=== PATIENT | female | born 1975 | race Caucasian/White ===

== ENCOUNTER 2017-04-30 18:15 | Observation (INO) ==
--- NOTE | 2017-04-30 18:47 | Emergency Department Note ---
ED Disposition Clinical Impression: Suicidal ideation, Suicidal behavior with attempted self-injury, Hypokalemia Overdose Qualifiers: Encounter type: initial encounter Injury intent: intentional self-harm Qualified Code(s): T50.902A - Poisoning by unspecified drugs, medicaments and biological substances, intentional self-harm, initial encounter Major depression Qualifiers: Major depression recurrence: single episode Active/Remission status: currently active Major depression episode severity: severe Psychotic features: without psychotic features Qualified Code(s): F32.2 - Major depressive disorder, single episode, severe without psychotic features Disposition: Admitted As Inpatient Condition on Discharge: Good Time of Disposition: 19:07 - Critical Care Critical Care Time: No Attestation: On , the high probability of a clinically significant, sudden or life threatening deterioration of the following system(s) required my full and direct attention, intervention and personal management. The time I documented below is in addition to time spent performing reported procedures but includes the following listed in this critical care notation. Total Critical Care Time: 45 Vital system(s) involved:: Circulatory Failure My critical care processes included: Assessment & monitoring of V/S, Initial and Re-exams, Data Review/Interpretation, Coordinating Care, Medication Orders and management, Documentation Medical Decision Making - Medical Records Medical records reviewed: Yes: I reviewed the patient's medical records. - Robby Inquiry Pt receiving controlled substance: No Vital Signs: 04/30/17 18:16 04/30/17 19:22 Temperature 98.0 F 98.9 F Temperature Source Axillary Oral Pulse Rate [Right Brachial] 127 H 128 H Respiratory Rate 16 14 Blood Pressure [Right Arm] 142/93 172/98 Blood Pressure Mean [Right Arm] 109 122 Blood Pressure Source [Right Arm] Automatic Cuff Automatic Cuff Blood Pressure Position [Right Arm] Supine Supine 02 Sat by Pulse Oximetry 100 99 Oxygen Delivery Method Room Air - Lab Data Lab results reviewed: Yes: I reviewed the patient's lab results. Lab Results 04/30/17 18:25: Urine Color Yellow, Urine Appearance Clear, Urine pH 6.0, Ur Specific Folcroft 1.020, Urine Protein Negative, Urine Glucose (UA) Negative, Urine Ketones 1+, Urine Blood Trace-i, Urine Nitrate Negative, Urine Bilirubin Negative, Urine Urobilinogen 0.2, Ur Leukocyte Esterase Negative, Urine WBC Occasional, Ur Squamous Epith Cells Occasional 04/30/17 18:25: WBC 9.6, RBC 5.03, Hgb 13.5, Hct 42.7, MCV 84.8, MCH 26.8 L, MCHC 31.5 L, RDW 13.4, Plt Count 456 H, MPV 8.0, Neut % (Auto) 54.3, Lymph % ( Auto) 40.4, Prentiss % (Auto) 3.5, Eos % (Auto) 1.3, Baso % (Auto) 0.4, Neut # (Auto ) 5.2, Lymph # (Auto) 3.9, Prentiss # (Auto) 0.3, Eos # (Auto) 0.1, Baso # (Auto) 0.0 04/30/17 18:25: Urine HCG, Qual Negative 04/30/17 18:25: Sodium 139, Potassium 3.4 L, Chloride 105, Carbon Dioxide 23, Anion Gap 14.4, BUN 10, Creatinine 0.85, Estimated Creat Clear 127, Estimated GFR 74, Est GFR ( Amer) 90, Glucose 164 H, Calcium 8.6, Total Bilirubin 0.2, AST 15, ALT 25, Alkaline Phosphatase 75, Total Protein 7.3, Albumin 3.3 L, Globulin 4.0 H, Albumin/Globulin Ratio 0.8 L, Salicylates 1.4 L, Acetaminophen 0 L, Plasma/Serum Alcohol 0 04/30/17 18:25: Urine Opiates Screen Negative, Ur Barbituates Screen Negative, Ur Phencyclidine Scrn Negative, Ur Amphetamines Screen Negative, U Methamphetamines Scrn Negative, U Benzodiazepines Scrn Negative, Urine Cocaine Screen Negative, U Marijuana (THC) Screen Negative Result diagrams: 04/30/17 18:25 04/30/17 18:25 Orders (Tests/Meds): ED MEDICATIONS Discontinued Medications Generic Name Dose Route Start Last Admin Trade Name Freq PRN Reason Stop Dose Admin Sodium Chloride 1,000 mls @ 999 mls/hr 04/30/17 19:00 04/30/17 18:58 Sod Chlor 0.9% 1000ml Bag IV 04/30/17 20:00 999 mls/hr .Q1H1M ALBARO Administration Sodium Chloride 1,000 mls @ 125 mls/hr 04/30/17 19:35 05/01/17 10:00 Sod Chlor 0.9% 1000ml Bag IV 05/30/17 19:34 125 mls/hr .Q8H ALBARO Administration Ondansetron HCl 4 mg 04/30/17 18:46 04/30/17 18:58 Zofran 4mg/2ml Vial IV 04/30/17 18:47 4 mg ONCE ONE Administration Ondansetron HCl 4 mg 04/30/17 19:35 Zofran 4mg/2ml Vial IV 05/30/17 19:34 Q4H PRN Nausea - Physician Consults Physician Consulted: Dr. Calloway Time: 19:00 Reason -: Admission, Pt condition Comment/Response: Case discussed with Dr. Calloway, advised of patient's presentation and findings, agreeable with hospitalization. She is NOT medically clear at this time, she will need to be transferred to psychiatric facility, when medically cleared. - Reevaluation(s) Time: 19:00 Reevaluation #1: Patient reevaluated, she remains lethargic, arousable with sternal rubs and loud voice only. Advise of plan to hospitalize her as well as transfer to psychiatric facility when medically clear, more than likely in 24 hours. Overdose HPI - General Chief Complaint: Overdose Stated Complaint: overdose Time Seen by Provider: 04/30/17 18:26 Mode of Arrival: EMS Source of Information: EMS Limitations: No Limitations Description of Symptoms (Recalled from ER Triage Doc. by RN): Per report pt has been "down in the dumps" for approx 2 weeks. States he spoke with pt about an hour ago she did not seem to her normal. States when she hung up the phone pt states to him to tell her daughter she loves her, states after pt hung up she would not answer again, states he found pt in floor at home , not responding but breathing. Upon arrival to ED pt will alert to verbal commands, keeps saying "I wanna go home". - History of Present Illness MD complaint: intentional overdose Onset (ago): hour(s) (/2) Timing confirmed by: spouse, family member Intent: suicide attempt How Overdose Was Discovered: called family/friend Context: Intentional Overdose: relationship problems Associated symptoms: depression Treatments Prior to Arrival: none - Related Data Home Medications Medication Instructions Recorded Confirmed Metoprolol Succinate 12.5 mg PO DAILY 04/30/17 04/30/17 Allergies Allergy/AdvReac Type Severity Reaction Status Date / Time aspirin [ASPIRIN] Allergy Unknown Verified 04/30/17 18:51 ibuprofen [IBUPROFEN] Allergy Unknown Verified 04/30/17 18:51 naproxen [From ALEVE] Allergy Unknown Verified 04/30/17 18:51 [facility] History I have reviewed the patient's past medical history: Yes ROS Obtained: Yes All systems reviewed & no additional complaints, Yes Systems reviewed as appropriate & no additional complaints - Neurologic Neurologic: Reports system reviewed and no additional complaints, except as docu ( ), Reports as per HPI, Reports behavioral changes (depression, suicidal, suicidal attempt) Physical Exam - General General appearance: alert, lethargic, in distress (severe, ) - Head Head exam: atraumatic, normocephalic, normal inspection - Eye Eye exam: Present: normal appearance, PERRL, EOMI, other (normal fundi) - Neck Neck exam: Present: normal inspection, full ROM, trachea midline. Absent: meningismus, lymphadenopathy - Chest Chest inspection: Present: normal inspection, symmetric chest wall rise. Absent : tenderness - Respiratory Respiratory exam: Present: normal lung sounds bilaterally. Absent: respiratory distress - Cardiovascular Cardiovascular exam: Present: regular rate, normal rhythm. Absent: JVD - Abdominal Exam Abdominal exam: Present: soft, normal bowel sounds. Absent: distention, tenderness, guarding - Extremities Exam Extremities exam: Present: normal inspection, full ROM, normal capillary refill. Absent: calf tenderness - Back Exam Back exam: Present: normal inspection. Absent: tenderness - Neurological Exam Neurological exam: Present: alert, oriented X3, CN II-XII intact, motor sensory deficit, other (lethargic) - Psychiatric Psychiatric exam: Present: normal affect, normal mood - Skin Skin exam: Present: warm, dry, intact, normal color - Lymphatic Lymphatic Findings: no adenopathy
[2017-04-30 18:48] LABS: Microscopic, Urine URINE MICROSCOPIC (MICROSCOPIC)
[2017-04-30 18:52] LABS: Basophils % 0.4 % (0.1-2.0); Eosinophils # 0.1 K/mm3 (0.0-0.4); Eosinophils % 1.3 % (0.1-12.0); Hematocrit 42.7 % (37.0-47.0); Hemoglobin 13.5 g/dL (12.2-16.2); Lymphocytes # 3.9 K/mm3 (0.7-4.5); Lymphocytes % 40.4 K/mm3 (10-50); Mean Corpuscular HGB Conc 31.5 g/dL (31.8-35.4); Mean Corpuscular Hemoglobin 26.8 pg (27.0-31.2); Mean Corpuscular Volume 84.8 fl (81-99); Monocytes # 0.3 K/mm3 (0.1-1.0); Monocytes % 3.5 % (1.7-9.3); Neutrophils # 5.2 K/mm3 (1.8-7.8); Neutrophils % 54.3 % (37.0-80.0); Platelet Count 456 K/mm3 (142-424); Red Blood Count 5.03 M/mm3 (4.20-5.40); Red Cell Distribution Width 13.4 % (11.5-17.5); White Blood Count 9.6 K/mm3 (4.8-10.8)
[2017-04-30 18:56] LABS: Appearance,Urine CLEAR (Clear); Bilirubin,Urine Negative (Negative); Blood, Urine TRACE-I (Negative); Color,Urine YELLOW (Yellow); Glucose,Urine (UA) Negative (Negative); Ketones,Urine 1+ (Negative); Leukocyte Esterase,Urine Negative (Negative); Protein,Urine Negative (Negative); Urobilinogen,Urine 0.2 EU/dl (0.2)
[2017-04-30 19:02] LABS: Amphetamine/Metha Screen,Urine Negative ng/mL (<1000); Barbiturates Screen,Urine Negative ng/mL (<200); Benzodiazepines Screen,Urine Negative ng/mL (200); Cannabinoid Screen,Urine Negative ng/mL (<50); Cocaine Screen,Urine Negative ng/g (<300); Methadone Screen,Urine Negative ng/mL (<300); Opiate Screen,Urine Negative ng/mL (<300); Phencyclidine Screen,Urine Negative ng/mL (<25)
[2017-04-30 19:04] LABS: Albumin Level 3.3 gm/dL (3.4-5.0); Albumin/Globulin Ratio 0.8 (1.1-1.8); Anion Gap 14.4 mEq/L (5-15); Bilirubin,Total 0.2 mg/dL (0.2-1.0); Calcium 8.6 mg/dL (8.5-10.1); Potassium 3.4 mmoL/L (3.5-5.1); Total Protein,Serum 7.3 gm/dL (6.4-8.2)
[2017-04-30 19:08] LABS: Squamous Epithelial Cell,Urine Occasional #/hpf (0-5); WBC,Urine Occasional #/hpf (0-3)
[2017-04-30 19:19] LABS: Salicylate 1.4 mg/dL (2.8-20.0)
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
--- NOTE | 2017-05-01 07:39 | Pharmacy Consult Notes ---
[facility] Pharmacy VTE Monitoring - Patient Demographics Admission date: 04/30/17 Report Date: 05/01/17 Time: 07:39 Allergies/Adverse Reactions: Patient Allergies aspirin [ASPIRIN] Allergy (Unknown, Verified 04/30/17 18:51) ibuprofen [IBUPROFEN] Allergy (Unknown, Verified 04/30/17 18:51) naproxen [From ALEVE] Allergy (Unknown, Verified 04/30/17 18:51) Height: 1.68 m Weight: 94.149 kg Patient Problems: Current Active Problems Overdose (Acute) Suicidal ideation (Acute) Suicidal behavior with attempted self-injury (Acute) Major depression (Acute) Bipolar 1 disorder, depressed (Acute) Tachycardia (Acute) Hypertension (Acute) Hypokalemia (Acute) - VTE Risk Labs: VTE Related Lab Results Hgb 13.5 g/dL (12.2-16.2) 04/30/17 18:25 Hct 42.7 % (37.0-47.0) 04/30/17 18:25 Plt Count 456 K/mm3 (142-424) H 04/30/17 18:25 BUN 10 mg/dL (7-18) 04/30/17 18:25 Creatinine 0.85 mg/dL (0.55-1.02) 04/30/17 18:25 Estimated Creat Clear 127 mL/min (0-300) 04/30/17 18:25 Clinical Trial Participant: No - Prophylaxis VTE Prophylaxis Ordered?: Yes Types of VTE Prophylaxis: TEDS Knee High
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
--- NOTE | 2017-05-01 14:33 | Progress Note ---
Internal Medicine - PN: Subj *Date: 05/01/17 *Time: 14:28 Exam Vital signs and Labs for Last 24 Hours: Temp Pulse Resp BP Pulse Ox 98.3 F 81 18 151/52 97 05/01/17 11:19 05/01/17 11:19 05/01/17 11:19 05/01/17 11:19 05/01/17 11:19 I & O for Last 24 hours: Intake & Output 04/29/17 04/30/17 05/01/17 05/02/17 11:59 11:59 11:59 11:59 Intake Total 1919 / 1918 840 / 840 Output Total 4050 / 4050 Balance -2131 / -213 840 / 840 Weight 227 lb 5 oz Assessment and Plan (1) Bipolar 1 disorder, depressed Current visit: Yes Status: Acute Category: Medical Code(s): F31.9 - Bipolar disorder, unspecified (2) Tachycardia Current visit: Yes Status: Acute Category: Medical Code(s): R00.0 - Tachycardia, unspecified (3) Hypertension Current visit: Yes Status: Acute Category: Medical Code(s): I10 - Essential (primary) hypertension (4) Hypokalemia Current visit: Yes Status: Acute Category: Medical Code(s): E87.6 - Hypokalemia (5) Major depression Current visit: Yes Status: Acute Qualifiers: Major depression recurrence: single episode Major depression episode severity: severe Psychotic features: without psychotic features Category: Medical Code(s): F32.9 - Major depressive disorder, single episode, unspecified (6) Overdose Current visit: Yes Status: Acute Qualifiers: Encounter type: initial encounter Injury intent: intentional self-harm Qualified Code(s): T50.902A - Poisoning by unspecified drugs, medicaments and biological substances, intentional self-harm, initial encounter Category: Medical Code(s): T50.901A - Poisoning by unspecified drugs, medicaments and biological substances, accidental (unintentional), initial encounter (7) Suicidal behavior with attempted self-injury Current visit: Yes Status: Acute Category: Medical Code(s): T14.91XA - Suicide attempt, initial encounter (8) Suicidal ideation Current visit: Yes Status: Acute Category: Medical Code(s): R45.851 - Suicidal ideations
[2017-05-01 15:15] VITALS: BP 122/87
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
== END 2017-05-01 15:56 | disposition home or self-care (01) ==
LOC: ER 18:15 → 2ND 18:15
PROVIDERS: ADMIT Family Medicine; ATTEND Family Medicine

== ENCOUNTER → 2017-08-27 07:36 | Outpatient (CLI) | payer BC, SELFPAY ==
[2017-08-27 10:03] LABS: Alanine Aminotransferase 22 U/L (12-78); Albumin Level 3.2 gm/dL (3.4-5.0); Albumin/Globulin Ratio 0.9 (1.1-1.8); Alkaline Phosphatase 77 U/L (46-116); Anion Gap 12.5 mEq/L (5-15); Aspartate Amino Transferase 10 U/L (15-37); Bilirubin,Total 0.3 mg/dL (0.2-1.0); Blood Urea Nitrogen 11 mg/dL (7-18); Calcium 8.5 mg/dL (8.5-10.1); Carbon Dioxide 28 mmol/L (21.0-32.0); Chloride 106 mmol/L (98-107); Chol/HDL Ratio 4.1 (1-3.5); Cholesterol 206 mg/dL (140-200); Creatinine,Serum 0.68 mg/dL (0.55-1.02); Estimated Glomerular Filt Rate 96 ml/min (>60); GFR (African American) 117 ML/MIN (>60); Globulin 3.4 gm/dl (1.3-3.2); Glucose 82 mg/dL (74-106); HDL Cholesterol 50 mg/dL (29-89); LDL Cholesterol 135 mg/dL (0-130); Potassium 4.5 mmoL/L (3.5-5.1); Sodium 142 mmol/L (136-145); Total Protein,Serum 6.6 gm/dL (6.4-8.2); Triglycerides 104 mg/dL (30-200); VLDL Cholesterol 21 mg/dL (0-40)
== END ==
PROVIDERS: Visit Provider Nurse Practitioner Family
DX: E78.5 Hyperlipidemia, unspecified (principal); I10 Essential (primary) hypertension
CPT/HCPCS: 36415; 80053; 80061

== ENCOUNTER → 2017-10-21 18:17 | Outpatient (REF) | payer BC, SELFPAY | LOC: LAB 18:17 | PROVIDERS: Visit Provider Emergency Medicine | DX: J02.9 Acute pharyngitis, unspecified (principal) ==

== ENCOUNTER → 2018-12-20 16:48 | Outpatient (CLI) | payer OTHER, SELFPAY ==
--- NOTE | 2018-12-20 17:05 | ECG_ITS ---
APPROVED REPORT Exam: Resting ECG HR:73 bpm ECG Measurements Heart Rate 73 AXES AL 140 P 40 QRSd 82 QRS 28 QT 370 T 54 QTc 407 <Conclusion> Normal sinus rhythm Late r wave progression Abnormal ECG Electronically signed by : Frederick Mena, 12/20/2018 17:21:40
[2018-12-20 17:30] LABS: Basophils # 0.1 K/mm3 (0-0.2); Basophils % 0.6 % (0.1-2.0); Eosinophils # 0.1 K/mm3 (0.0-0.4); Hematocrit 38.3 % (37.0-47.0); Hemoglobin 12.3 g/dL (12.2-16.2); Lymphocytes # 3.3 K/mm3 (0.7-4.5); Lymphocytes % 37.5 % (10-50); Mean Corpuscular HGB Conc 32.1 g/dL (31.8-35.4); Mean Corpuscular Hemoglobin 27.2 pg (27.0-31.2); Mean Corpuscular Volume 84.8 fl (81-99); Mean Platelet Volume 7.3 fl (7.4-10.4); Monocytes # 0.4 K/mm3 (0.1-1.0); Monocytes % 4.3 % (1.7-9.3); Neutrophils # 4.9 K/mm3 (1.8-7.8); Neutrophils % 56.6 % (37.0-80.0); Platelet Count 435 K/mm3 (142-424); Red Blood Count 4.52 M/mm3 (4.20-5.40); Red Cell Distribution Width 13.4 % (11.5-17.5); White Blood Count 8.7 K/mm3 (4.8-10.8)
[2018-12-20 17:34] LABS: D-Dimer < 100 ng/mL (0-400)
[2018-12-20 17:41] LABS: Alanine Aminotransferase 12 U/L (12-78); Albumin Level 3.1 gm/dL (3.4-5.0); Albumin/Globulin Ratio 0.8 (1.1-1.8); Alkaline Phosphatase 63 U/L (46-116); Anion Gap 7.6 mEq/L (5-15); Aspartate Amino Transferase 10 U/L (15-37); Bilirubin,Total 0.2 mg/dL (0.2-1.0); Blood Urea Nitrogen 15 mg/dL (7-18); CKMB Relative Index 0.9 U/L (0-4.0); Calcium 8.6 mg/dL (8.5-10.1); Carbon Dioxide 29 mmol/L (21.0-32.0); Chloride 105 mmol/L (98-107); Creatine Kinase 57 U/L (26-192); Creatine Kinase MB 0.5 ng/ml (0.0-3.6); Creatinine,Serum 0.88 mg/dL (0.55-1.02); Estimated Glomerular Filt Rate 71 ml/min (>60); Free T4 (Free Thyroxine) 0.95 ng/dl (0.76-1.46); GFR (African American) 86 ML/MIN (>60); Globulin 3.7 gm/dl (1.3-3.2); Glucose 94 mg/dL (74-106); Potassium 3.6 mmoL/L (3.5-5.1); Sodium 138 mmol/L (136-145); Thyroid Stimulating Hormone 2.94 uIU/ml (0.358-3.740); Total Protein,Serum 6.8 gm/dL (6.4-8.2); Troponin I < 0.02 ng/ml (0.00-0.06)
== END ==
PROVIDERS: PCP Physician Assistant; Visit Provider Physician Assistant
DX: R07.9 Chest pain, unspecified (principal); R00.0 Tachycardia, unspecified
CPT/HCPCS: 36415; 80053; 82550; 82553; 84439; 84443; 84484; 85025; 85378; 93005

== ENCOUNTER → 2020-02-04 11:07 | Outpatient (CLI) | payer OTHER, SELFPAY ==
[2020-02-04 12:44] LABS: Thyroid Stimulating Hormone 2.51 uIU/mL (0.465-4.68)
[2020-02-05 10:36] LABS: FSH 4.5 mIU/mL (.); LH 6.2 mIU/mL (.); Progesterone 14.1 ng/mL (.)
[2020-02-12 09:52] LABS: Anti Mullerian Hormone (AMH) 0.898 ng/mL (.)
== END ==
PROVIDERS: Visit Provider Obstetrics & Gynecology
DX: N97.0 Female infertility associated with anovulation (principal)
CPT/HCPCS: 36415; 82397; 82670; 83001; 83002; 84144; 84443

== ENCOUNTER 2020-10-13 17:10 | Emergency (ER) | payer OTHER, SELFPAY ==
[2020-10-13 18:15] VITALS: BP 132/84; PULSE 76; RESP 19; TEMP 37.1; O2SAT 98; BMI 34.4
--- NOTE | 2020-10-13 18:42 | HMH.EDUTC ---
[facility] [place] [facility] Disposition Clinical Impression: Encounter for laboratory testing for COVID-19 virus Disposition: Home, Self-Care Condition on Discharge: Good Instructions: DI for COVID-19 (Suspected or Confirmed ), Preventing the Spread of Coronavirus Discharge Instructions Additional Instructions: *Monitor Temp, Over the counter Motrin or Tylenol as directed/as needed Tylenol every 4 hours and Motrin every 6 hours (as long as your family doctor has told you that you can take it) for fever or pain. and straight to ER if unable to lower temp less than 101.0 after medication given Follow up IMMEDIATELY for new or worsening symptoms or no Noticeable improvement over the next 48-72 hours. 911 for difficulty breathing or swallowing You were tested for today for COVID19 your test result should be back in the next 24-48 hours, you was given instructions on how to log on the [facility] portal for your results. If you do not have internet or access you may call the [facility]. You was given a handout with instructions for Self Quarantine and Self isolation for while you wait on test results and what to do if they are positive If you are positive the Health Dept will be contacting you also Make sure to take your Vitamins Vit. C Vit D and Zinc if you can take them Referrals: Tigist Gagnon MD [Primary Care Provider] - As needed Forms: Work/School Release Medical Decision Making - Robby Inquiry Pt receiving controlled substance: No Robby was queried for this patient: No Vital Signs: 10/13/20 18:15 Temperature 98.8 F Temperature Source Oral Pulse Rate [Right] 76 Respiratory Rate 19 Blood Pressure [Right Arm] 132/84 Blood Pressure Mean [Right Arm] 100 02 Sat by Pulse Oximetry 98 Oxygen Delivery Method Room Air Orders (Tests/Meds): ORDERS Category Date Time Status Covid-19 Nasal PCR ([facility]) Routine Lab 10/13/20 18:13 Ordered [facility] [place] HPI - General Stated complaint: covid test Time Seen by Provider: 10/13/20 18:42 Description of Symptoms (Recalled from Triage Doc. by RN): COVID TESTING COUGH HEADACHE X2 DAYS HEENT Symptoms (Recalled from RN notes): No Resp Symptoms (Recalled from RN notes): No Skin Symptoms (Recalled from RN notes): No MS Symptoms (Recalled from RN notes): No Functional Status (Recalled from RN notes): WNL - History of Present Illness Provider Complaint: Patient states that son had RSV last week States that for the last couple of days she has been having cough and headache State that husbands work is having him get tested for COVID due to him having similar symptoms so she was going to get tested too - Related Data Home Medications Medication Instructions Recorded Confirmed Sertraline HCl [Zoloft 50mg tablet] 50 mg PO DAILY 03/06/19 03/06/19 biotin 1 mg capsule 1 mg PO DAILY 01/23/20 folic acid 1 mg tablet 1 mg PO DAILY 01/23/20 prenat.vits,carlee,msq-pfbb-dgjgm 1 tab PO DAILY 01/23/20 Previous Rx's Medication Instructions Recorded nystatin 100,000 unit/gram topical 1 applic TOPICAL TID #30 g 04/23/20 cream clomiphene citrate 50 mg tablet 100 mg PO DAILY 5 Days #10 tab 05/28/20 escitalopram oxalate 20 mg tablet 20 mg PO DAILY #30 tab 06/29/20 Allergies Allergy/AdvReac Type Severity Reaction Status Date / Time NSAIDS (Non-Steroidal Allergy Mild Verified 01/23/20 10:09 Anti-Inflamma aspirin [ASPIRIN] Allergy Unknown Verified 01/23/20 10:09 ibuprofen [IBUPROFEN] Allergy Unknown Verified 01/23/20 10:09 naproxen [From ALEVE] Allergy Unknown Verified 01/23/20 10:09 - Worker's Comp Is this a Worker's Comp case?: No [facility] History - Hepatitis A Screen Drug use history?: No High risk sexual behaviors?: No History of sexually transmitted infection?: No Currently employed?: No Childcare worker?: No Do you have indoor plumbing?: Yes Do you have electricity?: Yes Attestation statement:: This patient has been screened for Hepatitis A risk factors. I have reviewed the
[2020-10-13 19:00] VITALS: BP 132/84; PULSE 76; RESP 19; TEMP 37.1; O2SAT 98
== END 2020-10-13 19:01 | disposition home or self-care (01) ==
PROVIDERS: Emergency Provider Nurse Practitioner; PCP Family Medicine
DX: U07.1 COVID-19 (principal)
CPT/HCPCS: 99202; G0463; U0003

== ENCOUNTER → 2021-05-10 11:12 | Outpatient (CLI) | payer OTHER, SELFPAY | PROVIDERS: PCP Family Medicine; Visit Provider Physician Assistant | DX: G47.30 Sleep apnea, unspecified (principal); R06.83 Snoring | CPT/HCPCS: 95806 ==

== ENCOUNTER → 2021-06-15 15:41 | Outpatient (CLI) | payer OTHER, SELFPAY | PROVIDERS: Visit Provider Physician Assistant | DX: Z01.812 Encounter for preprocedural laboratory examination (principal); Z11.52 Encounter for screening for COVID-19 | CPT/HCPCS: C9803; U0003; U0005 ==

== ENCOUNTER → 2021-06-17 21:27 | Outpatient (CLI) | payer OTHER, SELFPAY | PROVIDERS: PCP Family Medicine; Visit Provider Physician Assistant | DX: G47.33 Obstructive sleep apnea (adult) (pediatric) (principal); R40.0 Somnolence; R06.83 Snoring | CPT/HCPCS: 95810 ==

== ENCOUNTER → 2021-11-17 03:45 | Outpatient (CLI) | payer OTHER, SELFPAY | PROVIDERS: PCP Nurse Practitioner Family; Visit Provider Nurse Practitioner Family | DX: N39.0 Urinary tract infection, site not specified (principal) | CPT/HCPCS: 87086 ==

== ENCOUNTER 2021-11-25 14:59 | Emergency (ER) | payer OTHER, SELFPAY ==
[2021-11-25 15:02] VITALS: BP 157/92; PULSE 98; RESP 16; TEMP 36.8; O2SAT 100; BMI 31.4
[2021-11-25 15:18] LABS: Microscopic, Urine URINE MICROSCOPIC (MICROSCOPIC)
--- NOTE | 2021-11-25 15:29 | CT_ITS ---
FINAL REPORT CLINICAL HISTORY: rt flank pain, hx of stones, rt bladder pain FINDINGS: Axial CT images of the abdomen and pelvis were obtained without intravenous contrast. Coronal reformatted images were also obtained.This study was performed with techniques to keep radiation doses as low as reasonably achievable (ALARA). Individualized dose reduction techniques using automated exposure control or adjustment of mA and/or kV according to the patient's size were employed. Abdomen: There is mild bibasilar atelectasis. There are several less than 3 mm nonobstructing right renal stones. There is mild right hydronephrosis and hydroureter secondary to a 5 mm right UVJ stone. There is fatty infiltration of the liver. The gallbladder is present. The spleen and pancreas have an unremarkable, unenhanced appearance. No inflammatory process is identified. There are fluid-filled small bowel loops in a nonspecific pattern. Pelvis: The appendix is normal. No mass is identified. There is a small amount of pelvic free fluid which may be physiologic or reactive. IMPRESSION: Several less than 3 mm nonobstructing right renal stones with mild right hydronephrosis and hydroureter secondary to a 5 mm right UVJ stone. Fatty liver. Cholecystectomy. Reviewed, Interpreted and Dictated by Jhonny Hurt III, MD Transcribed by Tabby Kaur Authenticated and [facility]
--- NOTE | 2021-11-25 15:31 | HMH.EDGENADL ---
Discharge Plan Disposition Patient Disposition: Home, Self-Care Condition: Good Prescriptions Prescriptions: New tamsulosin 0.4 mg capsule 0.4 mg PO DAILY Qty: 7 0RF oxycodone 5 mg capsule 5 mg PO Q8H PRN (Reason: pain) Qty: 7 0RF No Action phentermine [Adipex-P] 37.5 mg tablet 37.5 mg PO DAILY Qty: 30 0RF Rx Instructions: must administer 30 minutes before or 1-2 hours after breakfast valacyclovir [Valtrex] 1 gram tablet 1,000 mg PO Q12H Qty: 30 0RF Referrals Follow up/Referrals: Pipe Leahy MD [Primary Care Provider] - See instructions Clinical Impressions Clinical Impression: Ureteropelvic junction (UPJ) obstruction, right, Ureterolithiasis Instructions Patient Instructions: DI for Urinary Tract Infection (UTI), DI for Urinary Tract Infection in Children Discharge ED Provider: Adonay Botello General Adult [facility] General Chief complaint: Urogenital-Female Stated complaint: Abdominal and back pain, blood in urine Time Seen by Provider: 11/25/21 15:05 Mode of Arrival: Ambulatory Source of Information: Patient Limitations: No Limitations Description of Symptoms (Recalled from ER Triage Doc. by RN): Pt advises she has been having right flank pain and groin pain that became severe around noon. She went to her PCP this am who sent her to ED for further eval. Pt also c/o pain and burning with urnation and advises she has a hx of kidney stones History of Present Illness HPI narrative: This is a 45-year-old female with history of nephrolithiasis presenting with right groin pain. Patient states that she was having urinary tract infection symptoms including burning approximately 2 days prior to arrival. Went to primary care provider who did urinalysis, which was negative, per report, however patient was still started on antibiotics. Today, patient had acute groin pain that radiates to her right flank. It is 8 out of 10, stabbing/burning, associated with nonbloody/nonbilious vomiting. Denies hematuria, but still has dysuria. Patient does not have fevers, chills, change in bowel habits, overlying rash, or any other concerning symptoms. She says this feels just like her previous kidney stone which was on her right side as well. Nothing in particular makes it better or worse Related Data Previous Rx's Medication Instructions Recorded phentermine 37.5 mg tablet 37.5 mg PO DAILY #30 tabs 11/11/21 (Adipex-P) valacyclovir 1 gram tablet 1,000 mg PO Q12H #30 tabs 11/17/21 (Valtrex) oxycodone 5 mg capsule 5 mg PO Q8H PRN pain #7 caps 11/25/21 tamsulosin 0.4 mg capsule 0.4 mg PO DAILY #7 caps 11/25/21 Allergies Allergy/AdvReac Type Severity Reaction Status Date / Time NSAIDS (Non-Steroidal Allergy Mild Verified 11/25/21 14:11 Anti-Inflamma aspirin [ASPIRIN] Allergy Unknown Verified 11/25/21 14:11 ibuprofen [IBUPROFEN] Allergy Unknown Verified 11/25/21 14:11 naproxen [From ALEVE] Allergy Unknown Verified 11/25/21 14:11 [facility] Medical History (Updated 11/25/21 @ 17:17 by Adonay Botello MD) BMI 35.0-35.9,adult Obesity ANNE (obstructive sleep apnea) Social History Smoking Status: Never smoker alcohol intake: never substance use type: denies use current occupational status: employed Travel in the last 8 weeks: None household members: spouse housing: house number of children: 1 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
[2021-11-25 16:05] LABS: Appearance,Urine CLOUDY (Clear); Bilirubin,Urine Negative (Negative); Blood, Urine 1+ (Negative); Color,Urine YELLOW (Yellow); Glucose,Urine (UA) Negative (Negative); Ketones,Urine TRACE (Negative); Leukocyte Esterase,Urine Negative (Negative); Nitrate,Urine Negative (Negative); Protein,Urine Negative (Negative)
[2021-11-25 16:20] LABS: WBC,Urine Occasional #/hpf (0-3)
[2021-11-25 16:21] LABS: Bacteria,Urine Trace /lpf
[2021-11-25 17:06] VITALS: BP 150/90; PULSE 100; RESP 16; O2SAT 100
[2021-11-25 17:28] VITALS: BP 142/70; PULSE 80; RESP 16; TEMP 36.8; O2SAT 100
--- NOTE | 2021-11-26 10:29 | PC.NURSE ---
Pt states she is unable to get prescribed medicine for pain at [facility] pharmacy. When talked to pharmacist who states he never got the order for oxycodone yesterday. notified of this issue, states order is pending in chart. sent pt another order for oxycodone 5 mg
== END 2021-11-25 17:30 | disposition home or self-care (01) ==
PROVIDERS: Emergency Provider Emergency Medicine; PCP Emergency Medicine
DX: N13.2 Hydronephrosis with renal and ureteral calculous obstruction; Z79.899 Other long term (current) drug therapy; Z88.6 Allergy status to analgesic agent; G47.33 Obstructive sleep apnea (adult) (pediatric); E66.9 Obesity, unspecified; Z68.31 Body mass index [BMI] 31.0-31.9, adult; F31.9 Bipolar disorder, unspecified; F32.9 Major depressive disorder, single episode, unspecified; I10 Essential (primary) hypertension
CPT/HCPCS: 74176; 81001; 87086; 96374; 99284

== ENCOUNTER → 2021-11-25 16:43 | Outpatient (CLI) | payer OTHER, SELFPAY | PROVIDERS: PCP Student in an Organized Health Care Education/Training Program; Visit Provider Student in an Organized Health Care Education/Training Program | DX: R30.9 Painful micturition, unspecified (principal) | CPT/HCPCS: 87086 ==

== ENCOUNTER 2022-03-12 11:34 | Emergency (ER) | payer OTHER, SELFPAY ==
[2022-03-12 11:45] VITALS: BP 134/93; PULSE 129; RESP 20; TEMP 36.9; O2SAT 98; BMI 30.9
--- NOTE | 2022-03-12 11:59 | EXP.UTC ---
Discharge Plan Disposition Patient Disposition: Home, Self-Care Condition: Good Prescriptions Prescriptions: No Action desvenlafaxine succinate 50 mg tablet extended release 24 hr 50 mg PO DAILY phentermine [Adipex-P] 37.5 mg tablet 37.5 mg PO DAILY Rx Instructions: must administer 30 minutes before or 1-2 hours after breakfast Referrals Follow up/Referrals: Marina Greene PA [Primary Care Provider] - See instructions Activity Restrictions/Add. Instructions Additional Instructions/Restrictions: *Monitor Temp, Over the counter Motrin or Tylenol as directed/as needed Tylenol every 4 hours and Motrin every 6 hours (as long as your family doctor has told you that you can take it) for fever or pain. and straight to ER if unable to lower temp less than 101.0 after medication given *Warm salt water gargles may help to soothe the throat *Throat Lozenges? *Warm fluids like tea with honey may help to soothe the throat? *Sleep elevated *Humidifier/Vaporizer Your throat swab was sent for culture. Those results are typically sent to your primary care. Be sure to follow up in 2-3 days with your family doctor/primary care physician if no improvement so they can review those result and treat if necessary. If you don?t have a primary care doctor, I recommend you get one but in the mean time, you will have to return to a walk in clinic Follow up IMMEDIATELY for new or worsening symptoms or no Noticeable improvement over the next 48-72 hours. 911 for difficulty breathing or swallowing You were tested for today for COVID19 your test result should be back in the next 24-48 hours, you may check your results on the [facility] Portal Clinical Impressions Clinical Impression: Viral syndrome Stand Alone Forms Stand Alone Forms: Work/School Release Instructions Patient Instructions: DI for Viral Syndrome, DI for Fever (Symptom) -- Adult Discharge ED Provider: Neeta Donald [facility] HPI General Stated complaint: Bodyaches fever chills cough Time Seen by Provider: 03/12/22 11:59 History of Present Illness Provider Complaint: Patient states that she started feeling bad yesterday having flu like symptoms States that she has been having fever, chills, body aches, headache and sore throat States that today she was still having symptoms so she came in to get checked for flu Related Data Home Medications Medication Instructions Recorded Confirmed desvenlafaxine succinate 50 mg 50 mg PO DAILY . 03/08/22 03/12/22 tablet,extended release 24 hr phentermine 37.5 mg tablet 37.5 mg PO DAILY . 03/12/22 03/12/22 (Adipex-P) Allergies Allergy/AdvReac Type Severity Reaction Status Date / Time NSAIDS (Non-Steroidal Allergy Mild Verified 03/12/22 12:04 Anti-Inflamma aspirin [ASPIRIN] Allergy Unknown Verified 03/12/22 12:04 ibuprofen [IBUPROFEN] Allergy Unknown Verified 03/12/22 12:04 naproxen [From ALEVE] Allergy Unknown Verified 03/12/22 12:04 [facility] Disclaimer: The information contained in this section may have been updated after the patient was seen, as this information can be updated by other users. 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
[2022-03-12 12:07] LABS: UTC Influenza A Antigen Negative (Negative); UTC Influenza B Antigen Negative (Negative)
[2022-03-12 12:08] LABS: UTC Strep Screen (Rapid) Negative (Negative)
[2022-03-12 12:20] VITALS: BP 134/93; PULSE 129; RESP 20; TEMP 36.9; O2SAT 98
== END 2022-03-12 12:20 | disposition home or self-care (01) ==
PROVIDERS: Emergency Provider Nurse Practitioner; PCP Physician Assistant
DX: B34.9 Viral infection, unspecified (principal); R50.9 Fever, unspecified; R52 Pain, unspecified; R05.9 Cough, unspecified
CPT/HCPCS: 87804; 87880; 99212; G0463

== ENCOUNTER → 2022-07-19 23:15 | Outpatient (CLI) | payer OTHER, SELFPAY ==
[2022-07-19 18:13] LABS: Basophils % 0.7 % (0.1-2.0); Eosinophils # 0.1 K/mm3 (0.0-0.4); Eosinophils % 1.6 % (0.1-12.0); Hematocrit 40.6 % (37.0-47.0); Hemoglobin 12.2 g/dL (12.2-16.2); Lymphocytes # 2.9 K/mm3 (0.7-4.5); Lymphocytes % 47.3 % (10-50); Mean Corpuscular Hemoglobin 23.6 pg (27.0-31.2); Mean Corpuscular Volume 78.6 fl (81-99); Mean Platelet Volume 8.2 fl (7.4-10.4); Monocytes # 0.3 K/mm3 (0.1-1.0); Monocytes % 4.8 % (1.7-9.3); Neutrophils # 2.8 K/mm3 (1.8-7.8); Neutrophils % 45.7 % (37.0-80.0); Platelet Count 537 K/mm3 (142-424); Red Blood Count 5.17 M/mm3 (4.20-5.40); Red Cell Distribution Width 14.9 % (11.5-17.5); White Blood Count 6.2 K/mm3 (4.8-10.8)
[2022-07-19 18:17] LABS: Alanine Aminotransferase 19 U/L (12-78); Albumin Level 3.8 g/dl (3.5-5.0); Albumin/Globulin Ratio 1.2 (1.1-1.8); Alkaline Phosphatase 81 U/L (38-126); Anion Gap 15.2 mEq/L (5-15); Aspartate Amino Transferase 27 U/L (14-36); Bilirubin,Total 0.2 mg/dl (0.2-1.3); Blood Urea Nitrogen 9 mg/dl (7-17); Calcium 8.7 mg/dl (8.4-10.2); Carbon Dioxide 27 mmol/L (22.0-30.0); Chloride 101 mmol/L (98-107); Chol/HDL Ratio 4.9 (1-3.5); Cholesterol 216 mg/dl (140-200); Estimated Glomerular Filt Rate 109 ml/min (>60); GFR (African American) 131 ML/MIN (>60); Globulin 3.2 g/dL (1.3-3.2); Glucose 108 mg/dl (74-100); HDL Cholesterol 44 mg/dl (40-60); Potassium 4.2 mmoL/L (3.5-5.1); Sodium 139 mmol/L (136-145); Triglycerides 156 mg/dl (30-150); VLDL Cholesterol 31 mg/dL (0-40)
[2022-07-19 18:28] LABS: Direct LDL Cholesterol 142.36 mg/dL (100-129)
[2022-07-19 18:36] LABS: 25-OH Vitamin D, Total 35.6 ng/mL (30-100)
[2022-07-19 19:08] LABS: Vitamin B12 198 pg/mL (239-931)
[2022-07-22 12:10] LABS: FSH 8.2 mIU/mL (.); LH 4.4 mIU/mL (.); Progesterone 0.1 ng/mL (.); Testosterone,Total 10 ng/dL (4-50)
[2022-07-28 20:04] LABS: Estrogen 110 pg/mL (.)
== END ==
LOC: LAB.DROPOF 23:15
PROVIDERS: PCP Physician Assistant; Visit Provider Physician Assistant
DX: I10 Essential (primary) hypertension (principal); R53.83 Other fatigue; E66.9 Obesity, unspecified; Z68.33 Body mass index [BMI] 33.0-33.9, adult; Z79.899 Other long term (current) drug therapy
CPT/HCPCS: 80053; 80061; 82306; 82607; 82672; 83001; 83002; 84144; 84403; 84443; 85025

== ENCOUNTER → 2022-08-11 11:17 | Outpatient (CLI) | payer BC, SELFPAY ==
[2022-08-11 13:16] LABS: Hemoglobin A1C 5.9 % (4.0-6.0)
[2022-08-13 11:28] LABS: Peripheral Smear Review Scanned Result
== END ==
PROVIDERS: PCP Physician Assistant; Visit Provider Physician Assistant
DX: R89.9 Unspecified abnormal finding in specimens from other organs, systems and tissues (principal); Z79.899 Other long term (current) drug therapy
CPT/HCPCS: 36415; 83036

== ENCOUNTER → 2022-10-18 15:59 | Outpatient (CLI) | payer BC, SELFPAY ==
--- NOTE | 2022-10-18 16:05 | MM_ITS ---
PROCEDURE INFORMATION: Exam: MG Bilateral Screening 3D Mammography Exam date and time: 10/18/2022 4:32 PM Age: 46 years old Clinical indication: Screening. No family history of breast cancer. TECHNIQUE: Imaging protocol: Bilateral Screening tomosynthesis and 2D mammography including computer-aided detection (CAD) when performed. COMPARISON: 1. MG MAMMO SCREENING DIGITAL TOMOSYNTHESIS BILATERAL W CAD 02/12/2018 4:17 PM 2. MG MAMMO DIAGNOSTIC BILATERAL W CAD 02/18/2013 10:02 AM 3. MG MAMMO HISTORICAL RESULT 06/29/2006 10:27 AM 4. US BREAST UNILATERAL 02/18/2013 11:05 AM FINDINGS: MAMMOGRAPHY: Breast composition: There are scattered areas of fibroglandular density. Mass: None. Architectural distortion: None. Calcifications: No suspicious calcifications. Asymmetric density: None. Skin thickening: None. Axillary adenopathy: None. IMPRESSION: No mammographic evidence of malignancy. Annual screening is recommended unless otherwise clinically indicated. ASSESSMENT: BI-RADS Category 1: Negative
--- NOTE | 2022-10-18 16:05 | US_ITS ---
PROCEDURE: US TRANSVAGINAL CLINICAL INDICATION: MENORRHAGIA COMPARISON: No exams were available for comparison FINDINGS: Transvaginal and transabdominal sonographic images of the pelvis were obtained. UTERUS: 11.4 cm x 9.6 cmx 6.8 cm with a combined endometrial thickness of 8.6mm. The uterus is anteverted and bulky. Nabothian cyst in the cervix measuring 8.7 mm. LEFT OVARY: 3.0 cmx2.1 cmx1.9cm with a volume of 6.4ml.A 12 mm follicle is present in the left ovary. RIGHT OVARY: 2.9 cmx 1.5 cmx2.5 cm with a volume of 5.8ml. Both ovaries are seen and appear normal. Doppler flow to both ovaries are seen. There is no fluid in the cul-de-sac. IMPRESSION: 1. Bulky, anteverted uterus. The endometrium appears normal. 2. Small nabothian cyst in the cervix. 3. Both ovaries are seen and appear normal. 4. No fluid in the cul-de-sac. Dictated by: Luiz Mendez MD 10/19/2022 10:15 Luiz Mendez MD in OV 10/19/2022 10:15
== END ==
LOC: RAD 16:01
PROVIDERS: PCP Physician Assistant; Visit Provider Obstetrics & Gynecology
DX: Z12.31 Encounter for screening mammogram for malignant neoplasm of breast (principal); N92.0 Excessive and frequent menstruation with regular cycle
CPT/HCPCS: 76830; 77063; 77067

== ENCOUNTER → 2023-01-15 17:30 | Outpatient (CLI) | payer BC, SELFPAY ==
[2023-01-15 18:14] LABS: Basophils # 0.1 K/mm3 (0-0.2); Basophils % 0.7 % (0.1-2.0); Eosinophils # 0.1 K/mm3 (0.0-0.4); Eosinophils % 1.2 % (0.1-12.0); Hematocrit 40.9 % (37.0-47.0); Hemoglobin 13.2 g/dL (12.2-16.2); Lymphocytes # 4.3 K/mm3 (0.7-4.5); Lymphocytes % 44.1 % (10-50); Mean Corpuscular HGB Conc 32.4 g/dL (31.8-35.4); Mean Corpuscular Hemoglobin 25.3 pg (27.0-31.2); Mean Corpuscular Volume 78.2 fl (81-99); Mean Platelet Volume 7.3 fl (7.4-10.4); Monocytes # 0.4 K/mm3 (0.1-1.0); Monocytes % 3.9 % (1.7-9.3); Neutrophils # 4.8 K/mm3 (1.8-7.8); Neutrophils % 50.1 % (37.0-80.0); Platelet Count 529 K/mm3 (142-424); Red Blood Count 5.23 M/mm3 (4.20-5.40); Red Cell Distribution Width 15.2 % (11.5-17.5); White Blood Count 9.7 K/mm3 (4.8-10.8)
[2023-01-15 18:35] LABS: Alanine Aminotransferase 18 U/L (12-78); Albumin Level 4.1 g/dl (3.5-5.0); Albumin/Globulin Ratio 1.2 (1.1-1.8); Alkaline Phosphatase 83 U/L (38-126); Anion Gap 11.6 mEq/L (5-15); Aspartate Amino Transferase 21 U/L (14-36); Bilirubin,Total 0.3 mg/dl (0.2-1.3); Blood Urea Nitrogen 10 mg/dl (7-17); Calcium 8.7 mg/dl (8.4-10.2); Carbon Dioxide 26 mmol/L (22.0-30.0); Chloride 103 mmol/L (98-107); Estimated Glomerular Filt Rate 68 ml/min (>60); GFR (African American) 82 ML/MIN (>60); Globulin 3.4 g/dL (1.3-3.2); Glucose 99 mg/dl (74-100); Potassium 4.6 mmoL/L (3.5-5.1); Sodium 136 mmol/L (136-145); Total Protein,Serum 7.5 g/dl (6.3-8.2)
[2023-01-15 18:55] LABS: HCG,Quantitative < 2 mIU/ml (0-5.42)
== END ==
PROVIDERS: PCP Physician Assistant; Visit Provider Obstetrics & Gynecology
DX: N92.0 Excessive and frequent menstruation with regular cycle (principal)
CPT/HCPCS: 80053; 84702; 85025

== ENCOUNTER 2023-01-18 08:51 | Day surgery (SDC) | payer BC, SELFPAY ==
[2023-01-16 14:09] VITALS: BMI 163.8
[2023-01-18] VITALS (15 sets, daily range): BP systolic 122–164; BP diastolic 83–95; PULSE 86–103; RESP 12–18; TEMP 36.2–36.9; O2SAT 87–100; BMI 33.7
--- NOTE | 2023-01-18 09:24 | P.PNANES_ITS ---
[facility] Disclaimer: The information contained in this section may have been updated after the patient was seen, as this information can be updated by other users. Medical History BMI 35.0-35.9,adult History of demise, not currently Menorrhagia Obesity ANNE (obstructive sleep apnea) Suicidal behavior with attempted self-injury Ureterolithiasis Ureteropelvic junction (UPJ) obstruction, right Surgical History No significant past surgical history Family History Other Cancer Coronary artery disease Heart attack Hyperlipidemia Hypertension Stroke Thyroid disorder Social History (Updated 01/16/23 @ 14:08 by Leatha Arzola RN) Smoking Status: Never smoker alcohol intake: never substance use type: denies use current occupational status: employed Travel in the last 8 weeks: None household members: spouse housing: house number of children: 1 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 Anesthesia Checklist Patient Identification Patient Identification: Arm Band, Family and Verbal (Name & ) Structural Data Admitted From: Home Planned Operative Procedure/s: Hysteroscopy, D&C, Novasure, KYLE Salp Consent for Planned Operative Procedure(s) Verified: Yes Verified Documents: Surgical Consent and History and Physical NPO Status Verified Time NPO: 18:00 Chart Verification Results Verified: CBC, BMP, ECG and HCG Additional verifications Patient : No Anesthesia Reactions: No Cardiovascular Assessment Heart Sounds: S1 & S2 Pulse Rhythm: Irregular Peripheral Edema: No Airway Assessment Mallampati Score:: Class II C-Spine Mobility Assessed: Yes (FROM) TMJ Mobility Assessed: Yes Dentition: Good Dentition (Nothing loose per pt.) Neurological Assessment Level of Consciousness: Awake, Alert, Appropriate and Follows Commands Hx Seizures: No Numbness or tingling in extremities: No Anesthesia Plan Anesthesia Risk discussed: Yes Anesthesia Plan: Verified ASA Class: III Anesthesia Type: General
--- NOTE | 2023-01-18 11:53 | P.PNANES_ITS ---
[facility] Anesthesia Record Part I Anesthesia Record I Intake, IV Amount: 1,500 Hydration: Adequate Estimated blood loss (mL): 0 Urine output (mL): 0 Blood Pressure: 156/83 SaO2: 94 Pulse Rate: 93 Airway Patency: Patent Respiratory Rate: 12 Temperature: 98.4 F Patient is:: Awake and Stable Stable to PACU at:: 11:50
--- NOTE | 2023-01-18 12:18 | EXP.OP.NOTE ---
Date of procedure: 01/18/23 Pre-op Diagnosis:: 1. Menorrhagia 2. Desires permanent sterilization Post-op Diagnosis:: 1. Menorrhagia 2. Desires permanent sterilization Procedure performed:: 1. Laparoscopy, bilateral salpingectomy 2. Hysteroscopy, dilation and curettage, Novasure endometrial ablation Surgeon:: Gretchen Cartagena DO Parasitology Teacher(s):: N/a KNOTTING MACHINE OPERATOR:: Rajiv Bob Anesthesia: GETA Estimated blood loss (mL): 5 Clinical Note:: Stefani Camilo is a very pleasant 47 yo P2010 who presents to [facility] for scheduled procedure. She complains of very heavy regular, monthly periods. Flow lasts about 5 days and is very heavy with passage of clots. She is complete with childbearing and desires permanent sterilization. Pelvic ultrasound 10/18/22 demonstrated bulky, anteverted uterus, endometrium appears normal; small nabothian cyst in the cervix; both ovaries are seen and appear normal. Operative findings:: 1. On bimanual exam, uterus is large and retroverted. No adnexal masses palpated 2. On laparoscopic exam, grossly normal appearing liver, stomach and bowel. Appendix visualized and appears normal. Uterus is enlarged, heavy and boggy. Bilateral fallopian tubes and ovaries appear grossly normal. Should patient require definitive surgical intervention, I would recommend a FELIPE secondary to large, bulky uterus. Unable to lift uterus out of the pelvis with uterine manipulator during laparoscopic evaluation. Operative note:: Risks, benefits and alternatives were discussed with the patient. Risks include but are not limited to bleeding, infection, damage to adjacent structures and VTE. Patient voiced understanding and agreed to proceed with surgery. She was wheeled back to the operating room and placed under general anesthesia without difficulty. She was placed in the dorsal lithotomy position and prepped and draped in normal sterile fashion. A straight catheter was used to drain the bladder prior to the start of the procedure. A bimanual exam was performed. A weighted Auvard was placed in the vaginal vault. A single tooth tenaculum was placed on the anterior lip of the cervix. Karely uterine manipulator was inserted into the uterus. Single tooth tenaculum was removed from the cervix. Weighted Auvard was removed from the vagina. Attention was then drawn to the abdomen. A 1.5 cm infraumbilical incision was made. Veress needle was tested and inserted intraabdominally without difficulty. Opening pressure of 6 mm Hg. Abdomen was then insulflated to 15 mm Hg. Trocar was inserted through infraumbilical incision and laparoscope was inserted. Abdomen was viewed in its entirety. See findings above. Pictures were taken. Left lower quadrant was transilluminated. 5 mm incision was made and 5 mm disposable blunt trocar was inserted into the abdomen under direct laparoscopic visualization. Trocar was removed and sleeve was left in place. Right lower quadrant was transilluminated. A 5 mm incision was made and a 5 mm disposable trocar was inserted into the abdomen under direct laparoscopic visualization. Obturator was removed and sleeve was left in place. Fimbriated end of right fallopian tube was grasped. :gasure was used to transect the right mesosalpinx and fallopian tube at uterine cornua, leaving right ovary in situ. Same procedure was carried out on the contralateral side. Bilateral fallopian tubes will be sent to pathology for review. Hemostasis was noted. Pictures were taken. Left lower quadrant trocar was removed under direct laparoscopic visualization. Right lower quadrant trocar was removed under direct laparoscopic visualization. Pneumoperitoneum was released into the atmosphere. Infraumbilical trocar was removed under direct laparoscopic visualization to ensure no herniation of bowel or omentum. Skin incisions were closed with 3-0 Vicryl. Dermabond was applied over closed skin incisions. Attention was then turned to the vagina. Karely manipulator was removed. Uterus sounded t
--- NOTE | 2023-01-19 09:47 | P.PNANES_ITS ---
[facility] Anesthesia Record Part II Anesthesia Record Part II Discharge Time: 12:40 Destination: Surgical Day Care (OP Surgery) PACU nurse assessment reviewed?: Yes Patient Condition:: Good Anesthesia Complications:: None Swallowing reflex intact?: Yes Airway Patency: Patent Cyanosis?: No Blood Pressure: 144/92 SaO2: 98 Respiratory Rate: 16 Pulse Rate: 92 Temperature: 97.1 F Mental Status: Alert & Oriented Pain level:: 0 Nausea and/or vomitting:: None Intake, IV Amount: 0 Hydration: Adequate
[2023-01-19 09:48] VITALS: BP 144/92; PULSE 92; RESP 16; TEMP 36.2; O2SAT 98
== END 2023-01-18 13:55 | disposition home or self-care (01) ==
PROVIDERS: PCP Physician Assistant; Visit Provider Obstetrics & Gynecology
PROC: 0U5B8ZZ Destruction of Endometrium, Via Natural or Artificial Opening Endoscopic (ICD-10-PCS; CPT 58563; principal; 2023-01-18 10:15)
DX: Z30.2 Encounter for sterilization (principal); N92.0 Excessive and frequent menstruation with regular cycle; N85.2 Hypertrophy of uterus
CPT/HCPCS: 58661; 58563; 94640; J2405

== ENCOUNTER 2024-03-23 20:32 | Emergency (ER) | payer BC, SELFPAY ==
[2024-03-23 20:33] VITALS: BP 162/101; PULSE 83; RESP 20; TEMP 36.6; O2SAT 99; BMI 36.3
--- NOTE | 2024-03-23 20:55 | XR_ITS ---
PROCEDURE INFORMATION: Exam: XR Left Hand Exam date and time: 03/23/2024 8:57 PM Age: 48 years old Clinical indication: Injury or trauma; Other: Middle finger injury; Blunt trauma (contusions or hematomas); Hand; Left TECHNIQUE: Imaging protocol: Radiologic exam of the left hand. Views: 3 or more views. COMPARISON: No relevant prior studies available. FINDINGS: Bones/joints: Osseous alignment is normal. No acute fracture. No significant arthritic change. Soft tissues: Normal. IMPRESSION: Negative left hand
[2024-03-23] MEDS: ACETAMINOPHEN 500MG TAB 1000 MG PO (21:02)
--- NOTE | 2024-03-23 21:06 | ED_ITS ---
Discharge Plan Disposition Patient Disposition: Home, Self-Care Chief Complaint: PAIN Prescriptions Prescriptions: No Action hydroxyzine pamoate [Vistaril] 25 mg capsule 25 mg PO TID PRN (Reason: for increased anxiety) Qty: 90 0RF lorazepam [Ativan] 0.5 mg tablet 0.5 mg PO BID PRN (Reason: anxiety) Qty: 14 0RF cyanocobalamin (vitamin B-12) 1,000 mcg/mL solution 1,000 mcg IM QMONTH Qty: 100 2RF Rx Instructions: Pt to inject 1ml daily x7 days, then Pt to inject 1ml weekly x4 weeks, then Pt to inject 1ml monthly. desvenlafaxine succinate [Pristiq] 100 mg tablet extended release 24 hr 100 mg PO DAILY Qty: 30 1RF Referrals Follow up/Referrals: Provider,Referral, MD [Primary Care Provider] - See instructions Activity Restrictions/Add. Instructions Additional Instructions/Restrictions: At this time it was felt you are safe to be discharged home. If new or worsening symptoms please do not hesitate to return the emergency department. Clinical Impressions Clinical Impression: Finger injury Print Language Print Language: Kinyarwanda Discharge ED Provider: Philip Mckinnon General Adult HPI General Chief complaint: PAIN Stated complaint: AO 2-15 left hand middle finger Time Seen by Provider: 03/23/24 20:50 Mode of Arrival: Ambulatory Source of Information: Patient Limitations: No Limitations Description of Symptoms (Recalled from ER Triage Doc. by RN): Pt presents to ED for L middle finger pain. Pt states she hurt it trying to move things. Pt states it just continues to hurt and she thought she needed to get it checked out. Pt rates pain 5/10. Pt has a splint on affected finger. Pt is A&O*4 History of Present Illness HPI narrative: Patient is a 48-year-old female with no pertinent past medical history right- handed presents emergency department for evaluation of traumatic injury sustained to her left hand. Onset was acute, occurring yesterday, she hit her hand on a rotor plate washer where her middle finger became flexed. She woke up today and due to significant swelling centered around her finger between her MCP and PIP joint. Pain is worst around the PIP joint. No other trauma. No other acute complaints at this time. Related Data Previous Rx's ?Medication ?Instructions ?Recorded cyanocobalamin (vitamin B-12) 1,000 mcg IM QMONTH Vitamin B-12 07/26/22 1,000 mcg/mL injection solution Deficiency #100 mL hydroxyzine pamoate 25 mg capsule 25 mg PO TID PRN for increased 04/25/23 (Vistaril) anxiety #90 caps lorazepam 0.5 mg tablet (Ativan) 0.5 mg PO BID PRN anxiety #14 tabs 10/02/23 desvenlafaxine succinate 100 mg 100 mg PO DAILY #30 tabs 12/27/23 tablet,extended release 24 hr (Pristiq) Allergies Allergy/AdvReac Type Severity Reaction Status Date / Time NSAIDS (Non-Steroidal Allergy Mild Verified 03/12/24 16:07 Anti-Inflamma aspirin (ASPIRIN) Allergy Unknown Verified 03/12/24 16:07 ibuprofen (IBUPROFEN) Allergy Unknown Verified 03/12/24 16:07 naproxen (From ALEVE) Allergy Unknown Verified 03/12/24 16:07 STERI STRIPS Allergy RASH / Uncoded 04/16/23 10:02 BLISTERS [facility] Disclaimer: The information contained in this section may have been updated after the patient was seen, as this information can be updated by other users. Medical History Menorrhagia Ureterolithiasis Ureteropelvic junction (UPJ) obstruction, right ANNE (obstructive sleep apnea) BMI 35.0-35.9,adult Obesity History of demise, not currently Suicidal behavior with attempted self-injury Surgical History History of salpingectomy Should patient require definitive surgical intervention, I would recommend a FELIPE secondary to large, bulky uterus. 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 caffeine: Yes Have you lived/traveled outside [place] in past 30 days?: No Contact w/someone who lives/traveled outside [place] past 30 days?: No Exposure to someone with infectious disease in past 14 days?: No Do you have a fever (greater than 100.4 F or 38 C)?: No Have you tested positive for COVID-19: No Exposed to someone with COVID-19 in past 14 days?: No Do you have a sore throat?: No Do you have a cough?: No Do you have any weakness?: No Do you have any diarrhea?: No Are you experiencing any unusual bleeding?: No Do you have any muscle aches/pain?: No Do you have any abdominal pain?: No Are you experiencing loss of taste or smell?: No Other Medical History Have you received the Flu Vaccine for this season: No Have you received the Pneumonia Vaccine: No ROS Obtained: Yes Systems reviewed as appropriate & no additional complaints except as documented Physical Exam General General appearance: alert and in no apparent distress Head Head exam: atraumatic and normocephalic Eye Eye exam: Present PERRL ENT ENT exam: Present mucous membranes moist Neck Neck exam: Present normal inspection Chest Chest inspection: Present normal inspection and symmetric chest wall rise Respiratory Respiratory exam: Absent respiratory distress Cardiovascular Cardiovascular exam: Present regular rate and normal rhythm Extremities Exam Extremities exam: Present other (Circumferentially swollen long finger on the left hand between the MCP and PIP joint. Distally neurovascularly intact. Limited range of motion at the PIP joint secondary to pain and swelling) Neurological Exam Neurological exam: Present alert Psychiatric Psychiatric exam: Present normal affect Skin Skin exam: Present warm and dry Medical Decision Making Medical Records Screening: Per USPSTF and CDC recommendations, given the prevalence of disease in our region, it is our hospital?s policy to screen for HIV and viral Hepatitis for all patients aged 18 and over and those with ongoing risk factors. Robby Inquiry Pt receiving controlled substance: No Vital Signs: 03/23/24 20:33 Temperature 97.9 F Temperature Source Temporal Artery Scan Pulse Rate [Left] 83 Respiratory Rate 20 Blood Pressure [Right Arm] 162/101 H Blood Pressure Mean [Right Arm] 121 02 Sat by Pulse Oximetry 99 Oxygen Delivery Method Room Air Orders (Tests/Meds): ED MEDICATIONS Discontinued Medications Generic Name Dose Route Start Last Admin Trade Name Freq PRN Reason Stop Dose Admin Acetaminophen 1,000 mg 03/23/24 20:55 03/23/24 21:02 Acetaminophen 500mg Tab PO 03/23/24 20:56 1,000 mg ONCE ONE Administration ORDERS Category Date Time Status Hand XR left minimum 3 views [XR hand LT min 3V] Stat Exams 03/23/24 20:55 Taken Medical Decision Narrative: In summary patient is a 48-year-old female with past medical history described above who presents emergency department for evaluation of traumatic injury sustained to her hand. Patient is hemodynamically stable nontoxic-appearing upon arrival, afebrile. Based on history physical exam differential diagnosis includes fracture, musculoskeletal strain, among others. Workup will be conducted with plain film of the affected hand. Initial inventions include Tylenol. X-ray informally interpreted by me, there appears to be no significantly displaced fracture. Patient will be placed in a finger splint for comfort and is appropriate for outpatient management at this time. Critical Care Critical Care Time Critical Care Time: No
[2024-03-23 21:41] VITALS: BP 146/101; PULSE 88; RESP 16; TEMP 36.7
== END 2024-03-23 21:43 | disposition home or self-care (01) ==
PROVIDERS: Emergency Provider Emergency Medicine
DX: M79.645 Pain in left finger(s) (principal); S69.90XA Unspecified injury of unspecified wrist, hand and finger(s), initial encounter; W22.8XXA Striking against or struck by other objects, initial encounter; Y93.9 Activity, unspecified; Y92.9 Unspecified place or not applicable
CPT/HCPCS: 73130; 99283

== ENCOUNTER 2024-05-26 16:33 | Outpatient (CLI) | payer BC, SELFPAY ==
--- NOTE | 2024-05-26 | XR_ITS ---
PROCEDURE INFORMATION: Exam: XR Chest Exam date and time: 05/26/2024 5:08 PM Age: 48 years old Clinical indication: Screening exam; Pre-operative exam; Other: Pre-op for bariatric SX June 2024. Non smoker. No prior SX on heart or lungs. TECHNIQUE: Imaging protocol: Radiologic exam of the chest. Views: 2 views. COMPARISON: CT ABDOMEN PELVIS WO CON 11/25/2021 3:56 PM FINDINGS: Lungs: Unremarkable. No consolidation. Pleural spaces: Unremarkable. No pleural effusion. No pneumothorax. Heart/Mediastinum: Unremarkable. No cardiomegaly. Bones/joints: Unremarkable. IMPRESSION: No acute findings.
--- OUTSIDE RECORDS SUMMARY | 2024-05-26 16:37 | XMS_ITS | Continuity of Care Document ---
Author Organization [place] - NT [facility] & [facility] Bariatrics and Adv Surg Address [address] [place] [address] Care Team Providers Care Control Clerk Name Role Phone [facility] Primary Care [facility] er Assessment No assessment recorded. Plan of Treatment Reminders Order Date Submit Date Provider Last Modified By Organization Details Last Modified Time Details Appointments SURGERY 15 2024 10:45A M ABBE GILLILAND MD Not available Not available Not available OV NEW 30 2024 03:00P Kajal Elam MD Not available Not available Not available Lab vitamin D, 25-hydrox y, total, serum 2024 025 DEANN Todd, [address], [address], [place], [address], 05/22/2024 03:40:12 vitamin A (retinol) , serum 2024 025 DEANN [facility], [address], [address], [place], [address], 05/22/2024 03:40:11 vitamin E, serum 2024 025 DEANN Todd, [address], [address], [place], [address], 05/22/2024 03:40:09 PTH (parathyr oid hormone), intact, serum or plasma 2024 025 DEANN [facility], [address], [address], [place], [address], 05/22/2024 03:40:14 CBC w/ auto diff 2024 025 DEANN [facility], [address], [address], [place], [address], 05/22/2024 03:40:07 CMP, serum or plasma 2024 025 DEANN [facility], [address], [address], [place], [address], 05/22/2024 03:40:08 HbA1c (hemoglob in A1c), blood 2024 025 DEANN [facility], [address], [address], [place], [address], 05/22/2024 03:40:10 iron + TIBC + ferritin, serum 2024 025 DEANN [facility], [address], [address], [place], [address], 05/22/2024 03:40:06 lipid panel, serum 2024 025 DEANN [facility], [address], [address], [place], [address], 05/22/2024 03:40:09 TSH + free T4, serum 2024 025 DEANN [facility], [address], [address], [place], [address], 05/22/2024 03:40:07 folate, serum 2024 025 DEANN [facility], [address], [address], [place], [address], 05/22/2024 03:40:11 methylmal aracelis, QN, serum or plasma 2024 025 DEANN [facility], [address], [address], [place], [address], 05/22/2024 03:40:13 thiamine, QN, blood 2024 025 DEANN [facility], [address], [address], [place], [address], 05/22/2024 03:40:13 Referral None recorded. Procedures None recorded. Surgeries esophagog astroduod enoscopy (SURG) 2024 025 [email or web address] Abbe Gilliland MD, [address], [address], [place], [address], 05/15/2024 14:06:27 Imaging XR, chest, 2 view 2024 025 [facility] (Centralized Scheduling), [address], [place], [address], 05/15/2024 10:32:09 electroca rdiogram, routine ECG, 12 leads min 2024 025 DEANN Not available 05/22/2024 04:56:17 Medication Orders None recorded. Patient TargetsNo targets recorded. Patient InstructionsNo instructions recorded. Reason for Referral None Reported. Problems Name Problem SNOMED Code Status Onset Date Resolution Date Notes Provider Name and Address Organization Details Recorded Time Anxiety 48391240 Active 2024 DEMETRA BANUELOS NP [address], [place], [address] , [facility] - NT [facility] & [place] 08:32:15 Obstructive sleep apnea syndrome 67921152 Active 2024 DEMETRA BANUELOS NP [address], [place], [address] , [place] - [facility] & [place] 5 11:04:33 Type 2 diabetes mellitus 04213870 Active 2024 DEMETRA BANUELOS, ENGINEER SYSTEM ADMINISTRATOR [address] [facility], [place], [address] , [facility] & [place] 13:34:05 Problem Notes None recorded. Procedures Surgical History Date Name Laterality Status Provider Name and Address Organization Details Recorded Time extraction of wisdom tooth completed Susan Mireles [facility] & [place] 05/12/2024 15:27:37 ligation of fallopian tube completed Guillaume Mercedes-Vickey [place] - [place] [facility] & [place] 05/15/2024 09:51:03 excision of bunion completed Guillaume Mercedes[place] - [facility] & [place] 05/15/2024 09:51:14 destructive procedure [facility] & [place] 05/15/2024 09:52:12 Imaging Results None recorded. Procedure Notes None recorded. Medical Equipment None Reported. Allergies Allergen ID Allergen Name Allergen Category Reaction Reaction Severity Criticality Documentation Date Start Date Code Code System Note Provider Name and Address Organization Details Recorded Time 766849 Non-stero idal anti-infl ammatory agent (product) medicatio n Not available Not available Not available 05/15/2024 64153 005 SNOMED Guillaume gray [facility], [place] - [facility] & [place] 09:50:33 Medications Name Sig Start Date Stop Date Status Note LastModified by Organization Details LastModified Time benzonatate 200 mg capsule TAKE 1 CAPSULE BY MOUTH THREE TIMES DAILY NEEDED 05/15 completed Not Available Not Available Not Available valacyclovi r 1 gram tablet TAKE 1 TABLET BY MOUTH EVERY 12 HOURS DIRECTED FOR 1 DAY 05/15 completed Not Available Not Available Not Available hydroxyzine pamoate 25 mg capsule TAKE 1 CAPSULE BY MOUTH THREE TIMES DAILY NEEDED FOR INCREASED ANXIETY 05/15 completed Not Available Not Available Not Available desvenlafax ine succinate ER 50 mg tablet,exte nded release 24 hr TAKE 1 TABLET BY MOUTH ONCE DAILY active Not Available Not Available No t Available Vitals Date Recorded Body weight Body mass index (BMI) Body height Body temperature Heart rate Systolic blood pressure Diastolic blood pressure Provider Name and Address Organization Details Last Updated DateTime 5 80598.7 5 g 36 kg/m2 165.1 cm 96.9 [degF] 70 /min 166 mm[Hg] 98 mm[Hg] Guillaume gray [place] - [facility] - [place] & [place] 09:53:02 Social History None recorded. Functional Status None recorded. Mental Status None recorded. Family History Nothing Reported. Medical History Condition Response Anxiety Disorder Y Depression Y Sleep Apnea Y Gynecological HistoryNo gynecological history recorded. Obstetrics History GPAL:G 0 P 0 0 0 0 Past Encounters Encounter ID Performer Location Encounter Start Date Encounter Closed Date Diagnosis/Indication Diagnosis SNOMED-CT Code Diagnosis ICD10 Code Diagnosis Note [id number] DEMETRA [facility]ELOS [facility] [address] [facility] [address] [facility] [address] [facility] [address], [place] [address] 05/15/2024 08:07:57 05/15/2024 10:26:45 Obesity 618507149 E66.9 The patient will be scheduled for the following. Initial intake lab work, cardiac clearance, and EGD. All risks complicati ons and alternativ es of the upper endoscopy were discussed with the patient and agreed upon. These include but are not limited to, over sedation, bleeding, perforatio n. Patient will be educated by the surgical weight loss team regarding if any medical managed weight loss will be required and they will follow this according to their recommenda tions. patient will follow-up in office after all testing has been completed Pre-surger y evaluation 154462122 Z01.818 Obesity screening 980147 005 Z13.89 Gastroesop hageal reflux disease 767926648 K21.9 Obstructiv e sleep apnea syndrome 03290836 G47.[id number] [facility] n Bariatric s and Adv Surg [address] [facility] [address] [place] [address], [place] [address] 05/15/2024 10:22:30 05/15/2024 11:41:08 Diet education 04325199 Z71.3 Completed nutrition evaluation and education with patient. Education provided:- Importance of not skipping meals and eating every 2-4 hours.- Meeting protein goals based on recommende d surgery.-B egin reducing the amount of carbonated , caffeinate d, and sugary beverages consumed.- Encouraged getting in 64 oz. of fluids daily-Impo rtance of physical activity to help maintain muscle mass and to have successful weight loss-Impor tance of tracking calories and protein with a smartphone nury-Encour aged trying different protein shakes. Handouts provided: Surgical weight loss manual with nutrition education regarding protein, fruits, vegetables , grains, dairy, fats/oil, cooking methods, sample meal plan, and sample mix and match pairings, and exercise. Specific surgical manual provided to patient based on recommende d surgery. Health Concerns Section Related Observation LastModified by Organization Detai ls LastModified Time None Recorded Concern Status LastModified by Organization Details LastModified Time None Recorded Payers Encounter Date Sequence Insurance Name Policy Number Policy Walker Covered Member ID Walker Member ID Guarantor Name 05/15/2024 1 [place] JAN MURCIA [facility] [id number] Stefani Camilo [id number] Stefani Camilo Notes Date Note Type Note Provider Name and Address Organization Details Recorded Time 5 text/html Patient presents today for the initial evaluation with an interest in bariatric surgery. Patients first choice for bariatric surgery is sleeve gastrectomy Pt has been overweight most of their life. Has been 100lbs or more over weight for 2+ years. Pt reports dyspnea joint pain and mobility issues related to excess weight. The pt is pursuing weight loss surgery because excess weight directly contributes to comorbidities including anxiety and ANNE. Patient does Diets include calorie counting high protein/low carb diet. Pt site physical hunger and boredom as prompts to eat. Struggles with portion size. DIET HX:The patient states that they have been overweight since childhoodThe patient states that they have been 100 lbs or more overweight ? years.The patient started dieting at the age of 12Dieting methods that have been most successful in losing weight are portion controlThe most weight ever lost on a single dieting attempt was ? and this was maintained until 2 monthsThe patient has attempted the following unsupervised diet attempts calorie counting, meal replacementsThe Patient has followed the following supervised diet attempts elias mitchell dr. supervisedThe following OTC or prescribed medications have been utilized for weight loss accutrim, adipex, fen-phenBehavior treatments for weight loss that have been attempted in the past were noneThe patient has utilized the following modes of exercise to help with weight loss walkingThe patient has not use self induced behaviors to help them lose weight in the past.Currently the patient admits to an eating history of skipping meals.The patient feels that the majority of their meals are prepared from restaurants.Common triggers for causing the patient to overeat are anxiousness, boredom. LOWELL BANUELOS, LUZ ELENA [address] , [place], [address], [facility] - [place] & [place] 05/15/2024 11:05:02 5 text/html RDN met w/ pt to complete initial nutritional assessment for intake of bariatric surgery. 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 See full encounter summary.Additional vitamins/supplements: denies?Food Allergies: denies Meal pattern: 2x/day (doesn't eat breakfast), some snacking in between???B -1 cup of coffee with cream and sugar, 1 biscuit and gravyS -L - pizza rolls with a cokeS -D - turkey sandwich, chips, Knight - Beverages: regular soda (16 oz bottle per day but usually doesn't all of it) , coffee (every morning), water (3 glasses total)???Frequency of eating out: more meals from restaurants Have you tried protein shakes/supplements before: yes History tracking meals with an nury or journal: denies???Social Hx reviewed.Tobacco use/smoking: deniesAlcohol use: deniesRecreational drug use: denies Current physical activity: walking (mostly at school)???Recent changes: drinking more water, portions, trying not to eat when not actually hungry???Motivation for surgery: I've always been heavy and the older I get the harder it is to lose weight .???Support after surgery: friends, ???Goals for surgery: 130-150# Additional notes/comments: AMADOR SCHAEFER, RD [address] [place] [address], [place], [address], [facility] - [place] - [place] & [place] 05/15/2024 10:49:08 OBGyn Episode No OBEpisode recorded.
--- OUTSIDE RECORDS SUMMARY | 2024-05-26 16:38 | XMS_ITS | Continuity of Care Document ---
Author Organization [place] - [facility] & [facility] Bariatrics and Adv Surg Address [address] [place] [address] Care Team Providers Care Drapery Supervisor Name Role Phone [facility] Primary Care [facility] er Assessment Encounter Date Assessment Date Assessment LastModified by Organization Details LastModified Time 05/15/2024 05/15/2024 Weigh- Ins needed: none Weigh-in completion: n/a PES: Obesity/morbi d obesity r/t food and nutrition knowledge related deficit AEB BMI of 34.9 Calories: 1470 kcal (15 kcal/kg due to obesity/morbi d obesity) Protein: 70+ Fluids: 64+ fluid oz. RD Recommendatio ns: 1. Follow 2-4 hr rule for meal timing. Do not skip meals. 2. 64 oz noncarbonated , noncaffeinate d, sugar-free fluids/day 3. Increase physical activity to 30+ minutes 3-4x/week 4. Begin using tracking nury to assess avg diet intake, track daily intake 4+ times/week 5. Try different protein shakes to find ones that you like for post surgery. A total of 15 minutes was spent with the pt today. [email or web address] Not available 05/15/2024 10:47:03 Plan of Treatment Reminders Order Date Submit Date Provider Last Modified By Organization Details Last Modified Time Details Appointments SURGERY 15 2024 10:45A M ABBE MITTAL MD Not available Not available Not available OV NEW 30 2024 03:00P M Osman Elam MD Not available Not available Not available Lab None recorded . Referral None recorded . Procedures None recorded . Surgeries None recorded . Imaging None recorded . Medication Orders None recorded . Patient TargetsNo targets recorded. Patient InstructionsNo instructions recorded. Reason for Referral None Reported. Problems Name Problem SNOMED Code Status Onset Date Resolution Date Notes Provider Name and Address Organization Details Recorded Time Anxiety 94034723 Active 2024 DEMETRA BANUELOS, MANUFACTURING PROCESS TECHNICIAN [address], [place], [address] , [place] - [facility] & [place] 08:32:15 Obstructive sleep apnea syndrome 17744700 Active 2024 DEMETRA BANUELOS, MANUFACTURING PROCESS TECHNICIAN [address], [place], [address] , [place] - [facility] & [place] 11:04:33 Type 2 diabetes mellitus 14124750 Active 2024 DEMETRA BANUELOS, MANUFACTURING PROCESS TECHNICIAN [address] [facility], [place], [address] , [place] - [facility] & [place] 13:34:05 Problem Notes None recorded. Procedures Surgical History Date Name Laterality Status Provider Name and Address Organization Details Recorded Time extraction of wisdom tooth completed Susan Mireles [place] - [facility] & [place] 05/12/2024 15:27:37 ligation of fallopian tube completed Guillaume RaoVickey [place] - [facility] & [place] 05/15/2024 09:51:03 excision of bunion completed Guillaume Mercedes-[place] - [facility] & [place] 05/15/2024 09:51:14 destructive procedure completed Guillaume RaoMcpherson [place] - [facility] & [place] 05/15/2024 09:52:12 Imaging Results None recorded. Procedure Notes None recorded. Medical Equipment None Reported. Allergies Allergen ID Allergen Name Allergen Category Reaction Reaction Severity Criticality Documentation Date Start Date Code Code System Note Provider Name and Address Organization Details Recorded Time 868448 Non-stero idal anti-infl ammatory agent (product) medicatio n Not available Not available Not available 05/15/2024 39175 005 SNOMED Guillaume Osmani lora, [place] - [facility] & [place] 09:50:33 Medications Name Sig Start Date Stop [...] and Address Organization Details Last Updated DateTime 48723.7 5 g 36 kg/m2 165.1 cm 96.9 [degF] 70 /min 166 mm[Hg] 98 mm[Hg] [facility] & [place] 09:53:02 Social History None recorded. Functional Status [...] SNOMED-CT Code Diagnosis ICD10 Code Diagnosis Note [id number] DEMETRA BANUELOS NP [facility] [address] [facility] [address] [facility] [address] 05/15/2024 08:07:57 05/15/2024 10:26:45 Obesity 232800786 E66.9 The patient will be scheduled for [...] testing has been completed Pre-surger y evaluation 030102988 Z01.818 Obesity screening 127321 005 Z13.89 Gastroesop hageal reflux disease 028295440 K21.9 Obstructiv e sleep apnea syndrome 14134088 G47.[id number] [place] [facility] [address] [place] [address] 05/15/2024 10:22:30 05/15/2024 11:41:08 Diet education 44240673 Z71.3 Completed nutrition evaluation and education with [...] Walker Member ID Guarantor Name 05/15/2024 1 [place] [place] [id number] Stefani Camilo [id number] Stefani Camilo Notes Date Note Type [...] to overeat are anxiousness, boredom. LOWELL BANUELOS, MANUFACTURING PROCESS TECHNICIAN [address] [facility], [place], [address], [facility] - [place] & [place] 05/15/2024 11:05:02 5 text/html RDN met w/ pt to complete initial nutritional assessment for intake of bariatric surgery. 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
--- NOTE | 2024-05-26 16:45 | ECG_ITS ---
APPROVED REPORT Exam: Resting ECG HR:79 bpm ECG Measurements Heart Rate 79 AXES MI 143 P 35 QRSd 100 QRS -7 QT 359 T 34 QTc 394 Conclusion SINUS RHYTHM Late R wave progression Isolated Q in III - old findings UNCONFIRMED REPORT Electronically signed by : Frederick Mena MD 05/27/2024 08:41:37
== END 2024-05-26 23:59 | disposition home or self-care (01) ==
LOC: RAD 16:36
PROVIDERS: PCP Physician Assistant; Visit Provider Family Medicine
DX: Z01.818 Encounter for other preprocedural examination (principal)
CPT/HCPCS: 71046; 93005

== ENCOUNTER 2024-07-03 16:51 | Outpatient (CLI) | payer BC, SELFPAY ==
--- OUTSIDE RECORDS SUMMARY | 2024-07-03 16:53 | XMS_ITS | Continuity of Care Document ---
Author Organization [place] - [place] [facility] & [facility] Address [address] [place] [address] Care Team Providers Care Grinder Set Up Operator Centerless Name Role Phone [facility] Primary Care Provid er Assessment No assessment recorded. Plan of Treatment Reminders Order Date Submit Date Provider Last Modified By Organization Details Last Modified Time Details Appointments [facility]Con 2024 11:00A M ABBE GILLILAND MD Not available Not available Not available SURGERY 60 2024 06:30A M ABBE GILLILAND MD Not available Not available Not available Lab vitamin D, 25-hydrox y, total, serum 2024 025 DEANN [facility], [address], [address], [place], [address], 05/22/2024 03:40:12 vitamin A (retinol) , serum 2024 025 DEANN [facility], [address], [address], [place], [address], 05/22/2024 03:40:11 vitamin E, serum 2024 025 DEANN [facility], [address], [address], [place], [address], 05/22/2024 03:40:09 PTH (parathyr oid hormone), intact, serum or plasma 2024 025 DEANN [facility], [address], [address], [place], [address], 05/22/2024 03:40:14 CBC w/ auto diff 2024 025 DEANN [facility], [address], [address], [place], [address], 05/22/2024 03:40:07 CMP, serum or plasma 2024 025 DEANN [facility], [address], [address], [place], [address], 05/22/2024 03:40:08 HbA1c (hemoglob in A1c), blood 2024 025 DEANN [facility], [address], [address], [place], [address], 05/22/2024 03:40:10 iron + TIBC + ferritin, serum 2024 025 DEANN [facility], [address], [address], [place], [address], 05/22/2024 03:40:06 lipid panel, serum 2024 025 DEANN [facility], [address], [address], [place], [address], 05/22/2024 03:40:09 TSH + free T4, serum 2024 025 DEANN [facility], [address], [address], [place], [address], 05/22/2024 03:40:07 folate, serum 2024 025 DEANN [facility], [address], [address], [place], [address], 05/22/2024 03:40:11 methylmal aracelis, QN, serum or plasma 2024 025 BUSY [facility], [address], [address], [place], [address], 05/22/2024 03:40:13 thiamine, QN, blood 2024 025 BUSY [facility], [address], [address], [place], [address], 05/22/2024 03:40:13 Referral None recorded. Procedures None recorded. Surgeries esophagog astroduod enoscopy (SURG) 2024 025 BUSY Abbe Gilliland MD, [address] [place] [address], [address], [place], [address], 06/26/2024 16:12:56 Imaging XR, chest, 2 view 2024 025 [facility] (Central[facility] Scheduling), [address] [place] [address], [place], [address], 05/26/2024 17:50:45 electroca rdiogram, routine ECG, 12 leads min 2024 025 BUSY Not available 05/27/2024 08:43:35 Medication Orders None recorded. Patient TargetsNo targets recorded. Patient InstructionsNo instructions recorded. Reason for Referral None Reported. Results Created Date Observation Date Name Description Value Unit Range Abnormal Flag Note LastModifiedBy Organization Detail LastModifiedTime 05/27/1905/26/2024 XR, chest , 2 view No observ ation record ed. [facility] [address], [place], [address], 05/27/2024 13:26:51 05/28/19 25 05/26/2024 colin hair am, routi ne ECG, 12 leads min No observ ation record ed. [facility] [address], [place], [address], 05/27/2024 13:26:52 06/05/19 25 06/06/2024 elect rocar diogr am No observ ation record ed. [facility] [address] [place] [address], [place], [address], 06/06/2024 10:41:09 06/07/19 25 06/04/2024 elect rocar diogr am No observ ation record ed. [facility] [address] [place] [address], [place], [address], 06/06/2024 10:41:01 Result Notes None recorded. Problems Name Problem SNOMED Code Status Onset Date Resolution Date Notes Provider Name and Address Organization Details Recorded Time Anxiety 48619890 Active 2024 DEMETRA BANUELOS NP [address], [place], [address] , [place] - [facility] & [place] 5 08:32:15 Obstructive sleep apnea syndrome 76421338 Active 2024 DEMETRA BANUELOS, LUZ ELENA [address], [place], [address] , [place] - [facility] - [place] & [place] 5 11:04:33 Type 2 diabetes mellitus 93508351 Active 2024 DEMETRA BANUELOS NP [address], [place], [address] , [place] - [facility] - [place] & [place] 5 13:34:05 Body mass index 30+ - obesity 306374412 Active 2024 Osman Elam MD [address], [place], [address] , [place] - [facility] - [place] & [place] 15:08:24 Problem Notes None recorded. Procedures Surgical History Date Name Laterality Status Provider Name and Address Organization Details Recorded Time extraction of wisdom tooth completed Susan Mireles [place] - [facility] - [place] & [place] 15:27:37 ligation of fallopian tube completed Guillaume gray [place] - [facility] [place] & [place] 5 09:51:03 excision of bunion completed Guillaume CROCKETT [facility] & [place] 5 09:51:14 destructive procedure completed Shlomo Bradley [facility] & [place] 5 09:52:12 ESOPHAGOGASTRODUODEN OSCOPY (SURG) completed Heena Bradley [facility] & [place] 5 16:12:56 Imaging Results None recorded. Procedure Notes None recorded. Medical Equipment None Reported. Allergies Allergen ID Allergen Name Allergen Category Reaction Reaction Severity Criticality Documentation Date Start Date Code Code System Note Provider Name and Address Organization Details Recorded Time 084598 Non-stero idal anti-infl ammatory agent (product) medicatio n Not available Not available Not available 05/15/2024 66685 005 SNOMED Guillaume lora, [place] Bradley [facility] & [place] 5 09:50:33 Medications Name Sig Start Date Stop [...] TAKE 1 TABLET BY MOUTH ONCE DAILY 06/04 completed Not Available Not Available Not Available Multi Vitamin active Not Available Not Available Not Available desvenlafax ine ER 100 mg tablet,exte nded release 24 hr Take 1 tablet every day by oral route. active Not Available Not Available No t Available vitamin D3 1,250 mcg (50,000 unit)-vitam in K2 200 mcg capsule Take 1 capsule every day by oral route. active Not Available Not Available No t Available Vitals Date Recorded Body weight Body mass index (BMI) Body height Body temperature Heart rate Systolic blood pressure Diastolic blood pressure Provider Name and Address Organization Details Last Updated DateTime 5 44306.7 5 g 36 kg/m2 165.1 cm 96.9 [degF] 70 /min 166 mm[Hg] 98 mm[Hg] Guillaume CROCKETT - [place] & [place] 09:53:02 Social History Question Answer Notes LastModified by Organizat ion Details LastModified Time Tobacco Smoking Status Never Smoker Guillaume lora, [place] CROCKETT - [place] & [place] 05/15/2024 09:50:40 What Is Your Level Of Caffeine Consumption? Moderate Information not available 06/04/2024 Sex: Unknown Functional Status Question Answer Note LastModified by Organizat ion Details LastModified Time Do you use any illicit or recreational drugs? No [email or web address] Information not available 06/04/2024 What is your level of alcohol consumption? 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 Family History Nothing Reported. Medical History Condition Response Depression Y Anxiety Disorder Y Sleep Apnea Y Gynecological HistoryNo gynecological history recorded. Obstetrics History GPAL:G 0 P 0 0 0 0 Past Encounters Encounter ID Performer Location Encounter Start Date Encounter Closed Date Diagnosis/Indication Diagnosis SNOMED-CT Code Diagnosis ICD10 Code Diagnosis Note [id number] DEMETRA BANUELOS NP [facility] [address] [facility] [place] [address] 05/15/2024 08:07:57 05/15/2024 10:26:45 Obesity 750086388 E66.9 The patient will be scheduled for [...] testing has been completed Pre-surger y evaluation 882707084 Z01.818 Obesity screening 043217 005 Z13.89 Gastroesop hageal reflux disease 169749012 K21.9 Obstructiv e sleep apnea syndrome 25201140 G47.[id number] [place] [facility] [address] [place] [address] 05/15/2024 10:22:30 05/15/2024 11:41:08 Diet education 80471062 Z71.3 Completed nutrition evaluation and education with [...] Walker Member ID Guarantor Name 05/15/2024 1 [place]: JAN MURCIA [facility] [id number] Stefani Camilo [id number] 05 Stefani Camilo Notes Date Note Type [...] to overeat are anxiousness, boredom. LOWELL BANUELOS, CORPORATE PLANNING MANAGER [address], [place], [address], [facility] - [place] - [place] & [place] 05/15/2024 11:05:02 5 text/html RDN met w/ pt to complete initial nutritional assessment for intake of bariatric surgery. 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 See full encounter summary.Additional vitamins/supplements: denies Food Allergies: denies Meal pattern: 2x/day (doesn't eat breakfast), some snacking in between B -1 cup of coffee with cream and sugar, 1 biscuit and gravyS -L - pizza rolls with a cokeS -D - turkey sandwich, chips, Knight - Beverages: regular soda (16 oz bottle per day but usually doesn't all of it) , coffee (every morning), water (3 glasses total) F requency of eating out: more meals from restaurants Have you tried protein shakes/supplements before: yes History tracking meals with an nury or journal: jayeshies S ocial Hx reviewed.Tobacco use/smoking: deniesAlcohol use: deniesRecreational drug use: denies Current physical activity: walking (mostly at school) R ecent changes: drinking more water, portions, trying not to eat when not actually hungry M otivation for surgery: I've always been heavy and the older I get the harder it is to lose weight . S upport after surgery: friends, G oals for surgery: 130-150# Additional notes/comments: AMADOR SCHAEFER, RD [address], [place], [address], [facility] - [place] & [place] 05/15/2024 10:49:08 OBGyn Episode No OBEpisode recorded.
--- OUTSIDE RECORDS SUMMARY | 2024-07-03 16:54 | XMS_ITS | Data Portability ---
Author Organization [facility] - [facility] - [place] & B[place] Luis ADMIN Address [address] [place] [address] Care Team Providers Care Nicker And Breaker Name Role Phone [facility] Primary Care [facility] er Assessment Encounter Date Assessment Date Assessment [...] minutes was spent with the pt today. [email or web address] Not available 05/15/2024 10:47:03 Plan of Treatment Reminders Order Date Submit Date Provider Last Modified By Organization Details Last Modified Time Details Appointments [facility] 2024 11:00A M ABBE GILLILAND MD Not available Not available Not available SURGERY 60 2024 06:30A M ABBE GILLILAND MD Not available Not available Not available Lab vitamin D, 25-hydrox y, total, serum 2024 025 DEANN [facility], [address], [address], [place], [address], 05/22/2024 03:40:12 vitamin A (retinol) , serum 2024 025 DEANN [facility], [address], [address], [place], [address], 05/22/2024 03:40:11 vitamin E, serum 2024 025 DEANN [facility], [address], [address], [place], [address], 05/22/2024 03:40:09 PTH (parathyr oid hormone), intact, serum or plasma 2024 025 DEANN [facility], [address], [address], [place], [address], 05/22/2024 03:40:14 CBC w/ auto diff 2024 025 DEANN [facility], [address], [address], [place], [address], 05/22/2024 03:40:07 CMP, serum or plasma 2024 025 DEANN [facility], [address], [address], [place], [address], 05/22/2024 03:40:08 HbA1c (hemoglob in A1c), blood 2024 025 DEANN [facility], [address], [address], [place], [address], 05/22/2024 03:40:10 iron + TIBC + ferritin, serum 2024 025 DEANN [facility], [address], [address], [place], [address], 05/22/2024 03:40:06 lipid panel, serum 2024 025 [facility], [address], [address], [place], [address], 05/22/2024 03:40:09 TSH + free T4, serum 2024 025 [facility], [address], [address], [place], [address], 05/22/2024 03:40:07 folate, serum 2024 025 FR[facility], [address], [address], [place], [address], 05/22/2024 03:40:11 methylmal aracelis, QN, serum or plasma 2024 025 [facility], [address], [address], [place], [address], 05/22/2024 03:40:13 thiamine, QN, blood 2024 025 [facility], [address], [address], [place], [address], 05/22/2024 03:40:13 Referral None recorded. Procedures None recorded. Surgeries esophagog astroduod enoscopy (SURG) 2024 025 FRANKLIN Abbe Gilliland MD, [address], [address], [place], [address], 06/26/2024 16:12:56 Imaging electroca rdiogram 2024 025 [facility], [address], [place], [address], 06/06/2024 10:41:01 XR, chest, 2 view 2024 025 [facility] (Centralized Scheduling), [address], [place], [address], 05/26/2024 17:50:45 electroca rdiogram, routine ECG, 12 leads min 2024 025 DEANN Not available 05/27/2024 08:43:35 Medication Orders None recorded. Patient TargetsNo targets recorded. Patient InstructionsNo instructions recorded. Reason for Referral None Reported. Results Created Date Observation Date Name Description Value Unit Range Abnormal Flag Note LastModifiedBy Organization Detail LastModifiedTime 05/16/1905/16/2024 FE+TI BC+FE R iron bind.cap.(TI BC) 340 ug/dL 250-45 0 normal Not Available [facility] ([facility]) [address] [place], [address], 05/22/2024 03:40:06 05/16/1905/16/2024 FE+TI BC+FE R UIBC 295 ug/dL 131-42 5 normal Not Available [facility] ([facility]) [address] [place], [address], 05/22/2024 03:40:06 05/16/19 25 05/16/2024 FE+TI BC+FE R iron 45 ug/dL 27-159 normal Not Available [facility] ([facility]) [address] [place], [address], 05/22/2024 03:40:06 05/16/19 25 05/16/2024 FE+TI BC+FE R iron saturation 13 % 15-55 below low normal Not Available [facility] ([facility]) [address] [place], [address], 05/22/2024 03:40:06 05/16/19 25 05/16/2024 FE+TI BC+FE R ferritin 62 NG/mL 15-150 normal Not Available [facility] ([facility]) [address] [place], [address], 05/22/2024 03:40:06 05/16/19 25 05/16/2024 TSH+F REE T4 TSH 2.650 uIU/m L 0.450- 4.500 normal Not Available [facility] ([facility]) [address] [place], [address], 05/22/2024 03:40:07 05/16/19 25 05/16/2024 TSH+F REE T4 T4,free(dire ct) 1.13 NG/dL 0.82-1 .77 normal Not Available [facility] ([facility]) [address] [place], [address], 05/22/2024 03:40:07 05/16/19 25 05/16/2024 CBC WITH DIFFE RENTI AL/PL ATELE T WBC 7.9 x10e3 /uL 3.4-10 .8 normal Not Available [facility] ([facility]) [address] [place], [address], 05/22/2024 03:40:07 05/16/19 25 05/16/2024 CBC WITH DIFFE RENTI AL/PL ATELE T RBC 5.24 x10e6 /uL 3.77-5 .28 normal Not Available [facility] ([facility]) [address] [place], [address], 05/22/2024 03:40:07 05/16/19 25 05/16/2024 CBC WITH DIFFE RENTI AL/PL ATELE T hemoglobin 14.2 g/dL 11.1-1 5.9 normal Not Available [facility] ([facility]) [address] [place], [address], 05/22/2024 03:40:07 05/16/19 25 05/16/2024 CBC WITH DIFFE RENTI AL/PL ATELE T hematocrit 44.2 % 34.0-4 6.6 normal Not Available [facility] ([facility]) [address] [place], [address], 05/22/2024 03:40:07 05/16/19 25 05/16/2024 CBC WITH DIFFE RENTI AL/PL ATELE T MCV 84 fL 79-97 normal Not Available [facility] ([facility]) [address] [facility], [place], [address], 05/22/2024 03:40:07 05/16/19 25 05/16/2024 CBC WITH DIFFE RENTI AL/PL ATELE T MCH 27.1 pg 26.6-3 3.0 normal Not Available [facility] ([facility]) [address] [place], [address], 05/22/2024 03:40:07 05/16/19 25 05/16/2024 CBC WITH DIFFE RENTI AL/PL ATELE T MCHC 32.1 g/dL 31.5-3 5.7 normal Not Available [facility] ([facility]) [address] [place], [address], 05/22/2024 03:40:07 05/16/19 25 05/16/2024 CBC WITH DIFFE RENTI AL/PL ATELE T RDW 12.9 % 11.7-1 5.4 Not Available [facility] ([facility]) [address] [place], [address], 05/22/2024 03:40:07 05/16/19 25 05/16/2024 CBC WITH DIFFE RENTI AL/PL ATELE T platelets 512 x10e3 /uL 150-45 0 above high normal Not Available [facility] ([facility]) [address] [place], [address], 05/22/2024 03:40:07 05/16/19 25 05/16/2024 CBC WITH DIFFE RENTI AL/PL ATELE T neutrophils 59 % not estab. normal Not Available [facility] ([facility]) [address] [place], [address], 05/22/2024 03:40:07 05/16/19 25 05/16/2024 CBC WITH DIFFE RENTI AL/PL ATELE T lymphs 34 % not estab. normal Not Available [facility] ([facility]) [address] [facility], [place], [address], 05/22/2024 03:40:07 05/16/19 25 05/16/2024 CBC WITH DIFFE RENTI AL/PL ATELE T monocytes 5 % not estab. normal Not Available [facility] ([facility]) [address] [facility], [place], [address], 05/22/2024 03:40:07 05/16/19 25 05/16/2024 CBC WITH DIFFE RENTI AL/PL ATELE T eos 1 % not estab. normal Not Available [facility] ([facility]) [address] [facility], [place], [address], 05/22/2024 03:40:07 05/16/19 25 05/16/2024 CBC WITH DIFFE RENTI AL/PL ATELE T basos 1 % not estab. normal Not Available [facility] ([facility]) [address] [place], [address], 05/22/2024 03:40:07 05/16/19 25 05/16/2024 CBC WITH DIFFE RENTI AL/PL ATELE T immature cells SODA DIALYZER Not Available [facility] ([facility]) [address] [place], [address], 05/22/2024 03:40:07 05/16/19 25 05/16/2024 CBC WITH DIFFE RENTI AL/PL ATELE T neutrophils (absolute) 4.6 x10e3 /uL 1.4-7. 0 normal Not Available [facility] ([facility]) [address] [facility], [place], [address], 05/22/2024 03:40:07 05/16/19 25 05/16/2024 CBC WITH DIFFE RENTI AL/PL ATELE T lymphs (absolute) 2.7 x10e3 /uL 0.7-3. 1 normal Not Available [facility] ([facility]) [address] [place], [address], 05/22/2024 03:40:07 05/16/19 25 05/16/2024 CBC WITH DIFFE RENTI AL/PL ATELE T monocytes(ab solute) 0.4 x10e3 /uL 0.1-0. 9 normal Not Available [facility] ([facility]) [address] [place], [address], 05/22/2024 03:40:07 05/16/19 25 05/16/2024 CBC WITH DIFFE RENTI AL/PL ATELE T eos (absolute) 0.1 x10e3 /uL 0.0-0. 4 normal Not Available [facility] ([facility]) [address] [place], [address], 05/22/2024 03:40:07 05/16/19 25 05/16/2024 CBC WITH DIFFE RENTI AL/PL ATELE T baso (absolute) 0.0 x10e3 /uL 0.0-0. 2 normal Not Available [facility] ([facility]) [address] [place], [address], 05/22/2024 03:40:07 05/16/19 25 05/16/2024 CBC WITH DIFFE RENTI AL/PL ATELE T immature granulocytes 0 % not estab. Not Available [facility] ([facility]) [address] [place], [address], 05/22/2024 03:40:07 05/16/19 25 05/16/2024 CBC WITH DIFFE RENTI AL/PL ATELE T immature grans (abs) 0.0 x10e3 /uL 0.0-0. 1 Not Available [facility] ([facility]) [address] [place], [address], 05/22/2024 03:40:07 05/16/19 25 05/16/2024 CBC WITH DIFFE RENTI AL/PL ATELE T NRBC SODA DIALYZER Not Available [facility] ([facility]) [address] [facility], [place], [address], 05/22/2024 03:40:07 05/16/19 25 05/16/2024 CBC WITH DIFFE RENTI AL/PL ATELE T hematology comments: SODA DIALYZER Not Available [facility] ([facility]) [address] [facility], [place], [address], 05/22/2024 03:40:07 05/16/19 25 05/16/2024 COMP. METAB OLIC PANEL (14) glucose 111 mg/dL 70-99 above high normal Not Available [facility] ([facility]) [address] [facility], [place], [address], 05/22/2024 03:40:08 05/16/19 25 05/16/2024 COMP. METAB OLIC PANEL (14) BUN 7 mg/dL 6-24 normal Not Available [facility] ([facility]) [address] [place], [address], 05/22/2024 03:40:08 05/16/19 25 05/16/2024 COMP. METAB OLIC PANEL (14) creatinine 0.76 mg/dL 0.57-1 .00 normal Not Available [facility] ([facility]) [address] [facility], [place], [address], 05/22/2024 03:40:08 05/16/19 25 05/16/2024 COMP. METAB OLIC PANEL (14) eGFR 98 mL/mi n/1.7 3 >59 normal Not Available [facility] ([facility]) [address] [place], [address], 05/22/2024 03:40:08 05/16/19 25 05/16/2024 COMP. METAB OLIC PANEL (14) BUN/creatini ne ratio 9 9-23 normal Not Available [facility] ([facility]) [address] [facility] [place] [place], [address], 05/22/2024 03:40:08 05/16/19 25 05/16/2024 COMP. METAB OLIC PANEL (14) sodium 138 mmol/ L 134-14 4 normal Not Available [facility] ([facility]) [address] [facility] [place], [address], 05/22/2024 03:40:08 05/16/19 25 05/16/2024 COMP. METAB OLIC PANEL (14) potassium 5.3 mmol/ L 3.5-5. 2 above high normal Not Available [facility] ([facility]) [address] [facility], [place], [address], 05/22/2024 03:40:08 05/16/19 25 05/16/2024 COMP. METAB OLIC PANEL (14) chloride 101 mmol/ L 96-106 normal Not Available [facility] ([facility]) [address] [facility] [place], [address], 05/22/2024 03:40:08 05/16/19 25 05/16/2024 COMP. METAB OLIC PANEL (14) carbon dioxide, total 25 mmol/ L 20-29 normal Not Available [facility] ([facility]) [address] [facility] [place] [place], [address], 05/22/2024 03:40:08 05/16/19 25 05/16/2024 COMP. METAB OLIC PANEL (14) calcium 9.3 mg/dL 8.7-10 .2 normal Not Available [facility] ([facility]) [address] [facility] [place] [place], [address], 05/22/2024 03:40:08 05/16/19 25 05/16/2024 COMP. METAB OLIC PANEL (14) protein, total 6.8 g/dL 6.0-8. 5 normal Not Available [facility] ([facility]) [address] [facility] [place], [address], 05/22/2024 03:40:08 05/16/19 25 05/16/2024 COMP. METAB OLIC PANEL (14) albumin 4.0 g/dL 3.9-4. 9 normal Not Available [facility] ([facility]) [address] [facility] [place], [address], 05/22/2024 03:40:08 05/16/19 25 05/16/2024 COMP. METAB OLIC PANEL (14) globulin, total 2.8 g/dL 1.5-4. 5 Not Available [facility] ([facility]) [address] [facility] [place], [address], 05/22/2024 03:40:08 05/16/19 25 05/16/2024 COMP. METAB OLIC PANEL (14) bilirubin, total 0.2 mg/dL 0.0-1. 2 normal Not Available [facility] ([facility]) [address] [facility] [place], [address], 05/22/2024 03:40:08 05/16/19 25 05/16/2024 COMP. METAB OLIC PANEL (14) alkaline phosphatase 103 IU/L 44-121 normal Not Available [facility] ([facility]) [address] [facility] [place], [address], 05/22/2024 03:40:08 05/16/19 25 05/16/2024 COMP. METAB OLIC PANEL (14) AST (SGOT) 17 IU/L 0-40 normal Not Available [facility] ([facility]) [address] [facility] [place] [place], [address], 05/22/2024 03:40:08 05/16/19 25 05/16/2024 COMP. METAB OLIC PANEL (14) ALT (SGPT) 19 IU/L 0-32 normal Not Available [facility] ([facility]) [address] [place], [address], 05/22/2024 03:40:08 05/16/19 25 05/16/2024 LIPID PANEL cholesterol, total 197 mg/dL 100-19 9 normal Not Available [facility] ([facility]) [address] [facility] [place] [place], [address], 05/22/2024 03:40:09 05/16/19 25 05/16/2024 LIPID PANEL triglyceride s 125 mg/dL 0-149 normal Not Available [facility] ([facility]) [address] [place], [address], 05/22/2024 03:40:09 05/16/19 25 05/16/2024 LIPID PANEL HDL cholesterol 42 mg/dL >39 normal Not Available [facility] ([facility]) [address] [place], [address], 05/22/2024 03:40:09 05/16/19 25 05/16/2024 LIPID PANEL VLDL cholesterol carlee 23 mg/dL 5-40 Not Available [facility] ([facility]) [address] [place], [address], 05/22/2024 03:40:09 05/16/19 25 05/16/2024 LIPID PANEL LDL chol calc ([facility]) 132 mg/dL 0-99 above high normal Not Available [facility] ([facility]) [address] [place], [address], 05/22/2024 03:40:09 05/16/19 25 05/16/2024 LIPID PANEL LDL calc comment: SODA DIALYZER Not Available [facility] ([facility]) [address] [place], [address], 05/22/2024 03:40:09 05/16/19 25 05/21/2024 VITAM IN E vitamin E(alpha tocopherol) 9.6 mg/L 7.0-25 .1 Not Available [facility] ([facility]) [address] [facility], [place], [address], 05/22/2024 03:40:09 05/16/19 25 05/21/2024 VITAM IN E vitamin E(gamma tocopherol) 3.5 mg/L 0.5-5. 5 Refer ence inter vals for alpha and gamma -toco phero l deter mined from [facility] tion Exami natio n Surve y, 2004- 2005. Indiv idual s with alpha -toco phero l level s less than 5.0 mg/L are consi dered vitam in E defic ient. Not Available [facility] ([facility]) [address] [facility], [place], [address], 05/22/2024 03:40:09 05/16/19 25 05/16/2024 HEMOG LOBIN A1C hemoglobin A1C 6.7 % 4.8-5. 6 above high normal Predi abete s: 5.7 - 6.4 Diabe rebeca: >6.4 Glyce hernandez contr ol for adult s with diabe rebeca: <7.0 Not Available [facility] ([facility]) [address] [facility], [place], [address], 05/22/2024 03:40:10 05/16/19 25 05/16/2024 FOLAT E (FOLI C ACID) , SERUM folate (folic acid), serum 4.7 NG/mL >3.0 normal A serum folat e linwood ntrat ion of less than 3.1 ng/mL is consi dered to repre sent clini carlee defic iency . Not Available [facility] ([facility]) [address] [facility], [place], [address], 05/22/2024 03:40:11 05/16/19 25 05/21/2024 VITAM IN A, SERUM vitamin A 32.4 ug/dL 20.1-6 2.0 Refer ence inter vals for vitam in A deter mined from [facility] inter nal studi es. Indiv idual s with vitam in A less than 20 ug/dL are consi dered vitam in A defic ient and those with serum linwood ntrat ions less than 10 ug/dL are consi dered sever eric defic ient. This test was crow lopes and its perfo rmanc e samuel nunori stics deter mined by [facility]. It has not been clear ed or appro isiah by the Food and Drug Admin istra tion. Not Available [facility] ([facility]) [address] [facility], [place], [address], 05/22/2024 03:40:11 05/16/19 25 05/16/2024 VITAM IN D, 25-HY DROXY vitamin D, 25-hydroxy 26.6 NG/mL 30.0-1 00.0 below low normal Vitam in D defic iency has been defin ed by the Insti tute of Medic ine and an Endoc rine Socie ty pract ice guide line as a level of serum 25-OH vitam in D less than 20 ng/mL (1,2) . The Endoc rine Socie ty went on to furth er defin e vitam in D insuf ficie ncy as a level betwe en 21 and 29 ng/mL (2). 1. IOM (Inst itute of Medic ine). 2009. Dieta ry refer ence intak es for calci um and D. Amy ortiz [place]: [facility] . 2. Armida mendes MF, Brandy garcia [place], Tiffany off-F kristinar i HARDING, et al. Evalu ation , treat ment, and preve ntion of vitam in D defic iency : an Endoc rine Socie ty clini carlee pract ice guide line. JCEM. 2010; 96(7) :1911 -30. Not Available [facility] ([facility]) [address] [facility], [place], [address], 05/22/2024 03:40:12 05/16/19 25 05/19/2024 VITAM IN B1 (THIA MINE) , BLOOD vit. B1, whole blood 151.2 nmol/ L 66.5-2 00.0 Not Available [facility] ([facility]) [address] [facility], [place], [address], 05/22/2024 03:40:13 05/16/1905/20/2024 METHY LMALO LYDIA ACID, SERUM methylmaloni c acid, serum 136 nmol/ L 0-378 Not Available [facility] ([facility]) [address] [facility], [place], [address], 05/22/2024 03:40:13 05/16/1905/16/2024 PTH, INTAC T PTH, intact 70 pg/mL 15-65 above high normal Not Available [facility] ([facility]) [address] [facility], [place], [address], 05/22/2024 03:40:14 05/30/19 25 05/30/[address] (H PYLOR I AB QUAL) ronny test 20 min NEGATI VE negati ve Not Available [facility] ([facility]) [address] [place], [address], 05/30/2024 09:34:50 05/30/19 25 05/30/[address] (H PYLOR I AB QUAL) ronny test 1HR NEGATI VE negati ve Not Available [facility] ([facility]) [address] [facility], [place], [address], 05/30/2024 09:34:50 05/30/19 25 05/30/[address] (H PYLOR I AB QUAL) ronny test 3 HR NEGATI VE negati ve Not Available [facility] ([facility]) [address] [place], [address], 05/30/2024 09:34:50 05/30/19 25 05/30/[address] (H PYLOR I AB QUAL) ronny test 24 HR NEGATI VE negati ve Not Available [facility] ([facility]) [address] [place], [address], 05/30/2024 09:34:50 05/30/19 25 05/30/[address] (H PYLOR I AB QUAL) ronny test kit lot# [id number] Not Available [facility] ([facility] [address], [place], [address], 05/30/2024 09:34:50 05/30/19 25 05/30/[address] (H PYLOR I AB QUAL) ronny test kit exp date Not Available [facility] ([facility]) [address] [facility], [place], [address], 05/30/2024 09:34:50 05/27/1905/26/2024 XR, chest , 2 view No observ ation record ed. [place] [id number] [facility] [address], [place], [address], 05/27/2024 13:26:51 05/28/19 25 05/26/2024 elect rocar diogr am, routi ne ECG, 12 leads min No observ ation record ed. [facility] [address] [facility] [address], [place], [address], 05/27/2024 13:26:52 06/05/19 25 06/06/2024 elect rocar diogr am No observ ation record ed. [facility] [address], [place], [address], 06/06/2024 10:41:09 06/07/1906/04/2024 elect rocar diogr am No observ ation record ed. [facility] [address], [place], [address], 06/06/2024 10:41:01 Result Notes None recorded. Problems Name Problem SNOMED Code Status Onset Date Resolution Date Notes Provider Name and Address Organization Details Recorded Time Anxiety 65760989 Active 2024 DEMETRA BANUELOS, LUZ ELENA [address] [facility], [place], [address] , [place] - [facility] & [place] 5 08:32:15 Obstructive sleep apnea syndrome 61824619 Active 2024 DEMETRA BANUELOS, LUZ ELENA [address] [facility], [place], [address] , [place] - [facility] & [place] 5 11:04:33 Type 2 diabetes mellitus 58235195 Active 2024 DEMETRA BANUELOS, LUZ ELENA [address] [facility] [facility], [place], [address] , [place] - [facility] & [place] 5 13:34:05 Body mass index 30+ - obesity 735169050 Active 2024 Osman Elam MD [address] [facility], [place], [address] , [place] - [facility] & [place] 5 15:08:24 Problem Notes None recorded. Procedures Surgical History Date Name Laterality Status Provider Name and Address Organization Details Recorded Time extraction of wisdom tooth completed Susan Mireles [place] - [facility] & [place] 5 15:27:37 ligation of fallopian tube completed Guillaume [facility] & [place] 5 09:51:03 excision of bunion completed Guillaume [place] - [facility] & [place] 5 09:51:14 destructive procedure completed Shlomo in [place] - [facility] & [place] 5 09:52:12 ESOPHAGOGASTRODUODEN OSCOPY (SURG) completed Heena Cooley [place] - [facility] & [place] 5 16:12:56 Imaging Results None recorded. Procedure Notes None recorded. Medical Equipment None Reported. Allergies Allergen ID Allergen Name Allergen Category Reaction Reaction Severity Criticality Documentation Date Start Date Code Code System Note Provider Name and Address Organization Details Recorded Time [id number] Non-stero idal anti-infl ammatory agent (product) medicatio n Not available Not available Not available 05/15/2024 61787 005 SNOMED Guillaume [facility], [facility] [facility] & [place] 5 09:50:33 Medications Name Sig [...] Address Organization Details Last Updated DateTime 5 30966.7 5 g 36 kg/m2 165.1 cm 96.9 [degF] 70 /min 166 mm[Hg] 98 mm[Hg] Guillaume THORNTON - [place] - [place] & [place] 5 09:53:02 Date Recorded Body height Body mass index (BMI) Body weight Oxygen saturation Oxygen saturation in Arterial blood by Pulse oximetry Heart rate Systolic blood pressure Diastolic blood pressure Provider Name and Address Organization Details Last Updated DateTime 5 165.1 cm 36.3 kg/m2 15272.1 4 g 98 % 98 % 91 /min 134 mm[Hg] 86 mm[Hg] Brook Lomeli [place] - [facility] & [place] 5 14:58:12 Social History Question Answer Notes LastModified by Organizat ion Details LastModified Time Tobacco Smoking Status Never Smoker Guillaume [facility], [place] - [facility] - [place] & [place] 05/15/2024 09:50:40 What Is Your Level Of Caffeine Consumption? Moderate [email or web address] Information not available 06/04/2024 Sex: Unknown Functional Status Question Answer Note LastModified by Organizat ion Details LastModified Time Do you use any illicit or recreational drugs? No [email or web address] Information not available 06/04/2024 What is your level of alcohol consumption? None [email or web address] Information not available 06/04/2024 What is your [...] SNOMED-CT Code Diagnosis ICD10 Code Diagnosis Note [id number] DEMETRA BANUELOS NP [facility] [address] [place] [address] 05/15/2024 08:07:57 05/15/2024 10:26:45 Obesity 443070372 E66.9 The patient will be scheduled for [...] testing has been completed Pre-surger y evaluation 255764654 Z01.818 Obesity screening 537487 005 Z13.89 Gastroesop hageal reflux disease 086946074 K21.9 Obstructiv e sleep apnea syndrome 07219098 G47.[id number] [facility] [address] [place] [address] 05/15/2024 10:22:30 05/15/2024 11:41:08 Diet education 53394732 Z71.3 Completed nutrition evaluation and education with [...] to patient based on recommende d surgery. [id number] Osman Elam MD [facility] [address] [place] [address] 06/04/2024 14:50:31 06/04/2024 15:11:07 Preprocedural examination done 6402970745 61311 Z01.818 Good functional capacity with no prior cardiac history. Patient is low risk for cardiovasc ular complicati ons. No further cardiac testing warranted at this point. Obstructiv e sleep apnea syndrome 41051006 G47.33 uses CPAP regularly Body mass index 30+ - obesity 841520382 E66.9 Low-carboh ydrate and low-fat diet Increase exercise to 30 minutes a day. Increase fruits and fresh vegetable intake and decrease processed foods and sugars Health Concerns Section Related Observation LastModified by Organization Detai ls LastModified Time None Recorded Concern Status LastModified by Organization Details LastModified Time None Recorded Advance Directives Directive None Recorded Payers Insurance Date Sequence Insurance Name Policy Number Policy Walker Covered Member ID Walker Member ID Guarantor Name 06/04/2024 1 [place]: JAN MURCIA [facility] [id number] Stefani Camilo [id number] Stefani Camilo Notes Date Note Type [...] has followed the following supervised diet attempts nutri dr. stephen supervisedThe following OTC or prescribed medications have [...] anxiousness, boredom. LOWELL BANUELOS, LUZ ELENA [address] [facility], [place], [address], [facility] - [place] & [place] 05/15/2024 11:05:02 5 text/html RDN met w/ pt to complete initial nutritional assessment for intake of bariatric surgery. 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 Jeffery Rosado The patient has good functional capacity, can walk 2-4 blocks without exertional chest pain or shortness of breath.Patient denies any PND orthopnea palpitations presyncope syncopeNo prior cardiac history or history of stroke +Obesity- failed diet and exercise and now considering surgery+Obstructive sleep apnea - on CPAP, uses it regularlyEKG 06/04/2024 NSR 80 normal axis normal intervals Osman Elam MD [address], [place], [address], [facility] & [place] 06/04/2024 15:22:09 OBGyn Episode No OBEpisode recorded.
--- OUTSIDE RECORDS SUMMARY | 2024-07-03 16:54 | XMS_ITS | Continuity of Care Document ---
Author Organization [place] - [facility]rics and Adv Surg Address [address] [facility] [place] [address] Care Team Providers Care Data Management Engineer Name Role Phone [facility] Primary Care [facility] er Assessment Encounter Date Assessment Date Assessment [...] minutes was spent with the pt today. [email or web address] Not available 05/15/2024 10:47:03 Plan of Treatment Reminders Order Date Submit Date Provider Last Modified By Organization Details Last Modified Time Details Appointments [facility] MDCon 2024 11:00A M ABBE MITTAL MD Not available Not available Not available SURGERY 60 2024 06:30A M ABBE MITTAL MD Not available Not [...] 2 view No observ ation record ed. [facility] [address], [place], [address], 05/27/2024 13:26:51 05/28/19 25 05/26/2024 elect rocar diogr am, routi ne ECG, 12 leads min No observ ation record ed. [facility] [address], [place], [address], 05/27/2024 13:26:52 06/05/19 25 06/06/2024 elect rocar diogr am No observ ation record ed. [facility] [address], [place], [address], 06/06/2024 10:41:09 06/07/19 25 06/04/2024 elect rocar diogr am No observ ation record ed. [facility] [address], [place], [address], 06/06/2024 10:41:01 Result Notes None recorded. Problems Name Problem SNOMED Code Status Onset Date Resolution Date Notes Provider Name and Address Organization Details Recorded Time Anxiety 12357097 Active 2024 DEMETRA BANUELOS NP [address] , [place], [address] , [facility] [place] - [place] & [place] 5 08:32:15 Obstructive sleep apnea syndrome 22625009 Active 2024 DEMETRA BANUELOS NP [address] , [place], [address] , [facility] [place] - [place] & [place] 5 11:04:33 Type 2 diabetes mellitus 78665273 Active 2024 DEMETRA BANUELOS, LUZ ELENA [address] [facility], [place], [address] , [facility] & [place] 5 13:34:05 Body mass index 30+ - obesity 432681702 Active 2024 Osman Elam MD [address] [facility], [place], [address] , [facility] & [place] 5 15:08:24 Problem Notes None recorded. Procedures Surgical History Date Name Laterality Status Provider Name and Address Organization Details Recorded Time extraction of wisdom tooth completed Susan Mireles [facility] & [place] 5 15:27:37 ligation of fallopian tube completed Guillaume Sharp-Bec isaac [facility] & [place] 5 09:51:03 excision of bunion completed Guillaume Sharp-Bec isaac [facility] [place] & [place] 5 09:51:14 destructive procedure completed Shlomo in Sharp-Bec isaac [facility] & [place] 5 09:52:12 ESOPHAGOGASTRODUODEN OSCOPY (SURG) completed Heena Cooley [facility] & [place] 5 16:12:56 Imaging Results None recorded. Procedure Notes None recorded. Medical Equipment None Reported. Allergies Allergen ID Allergen Name Allergen Category Reaction Reaction Severity Criticality Documentation Date Start Date Code Code System Note Provider Name and Address Organization Details Recorded Time 393039 Non-stero idal anti-infl ammatory agent (product) medicatio n Not available Not available Not available 05/15/2024 35749 005 SNOMED Guillaume Sharp-Bec isaac [facility], [place] - [facility] & [place] 5 09:50:33 Medications Name Sig Start Date [...] and Address Organization Details Last Updated DateTime 15223.7 5 g 36 kg/m2 165.1 cm 96.9 [degF] 70 /min 166 mm[Hg] 98 mm[Hg] Guillaume gray [facility] 09:53:02 Social History Question Answer Notes LastModified by Ardian Details LastModified Time Tobacco Smoking Status Never Smoker Guillaume [place] 05/15/2024 09:50:40 What Is Your Level Of Caffeine Consumption? Moderate [email or web address] Information not available 06/04/2024 Sex: Unknown Functional Status Question Answer Note LastModified by Ardian Details LastModified Time Do you use any illicit or recreational drugs? No [email or web address] Information not available 06/04/2024 What is your level of alcohol consumption? None [email or web address] Information not available 06/04/2024 What is your [...] SNOMED-CT Code Diagnosis ICD10 Code Diagnosis Note [id number] DEMETRA BANUELOS NP [facility] n Bariatric s and Adv Surg [address] [facility] [address] [address] [address] [place] [address] 05/15/2024 08:07:57 05/15/2024 10:26:45 Obesity 957545027 E66.9 The patient will be scheduled for [...] testing has been completed Pre-surger y evaluation 108929998 Z01.818 Obesity screening 699839 005 Z13.89 Gastroesop hageal reflux disease 642161998 K21.9 Obstructiv e sleep apnea syndrome 84732021 G47.[id number] [facility] Bariatric s and Adv Surg [address] [facility] [address] [place] [address] 05/15/2024 10:22:30 05/15/2024 11:41:08 Diet education 28048716 Z71.3 Completed nutrition evaluation and education with [...] ID Guarantor Name 05/15/2024 1 [place] [employer] [place] [id number] Stefani Camilo [id number] Stefani Camilo Notes Date Note Type [...] followed the following supervised diet attempts nutri systemdr. supervisedThe following OTC or prescribed medications have [...] are anxiousness, boredom. LOWELL BANUELOS, LUZ ELENA [address], [place], [address], [facility] - [place] & [place] 05/15/2024 11:05:02 5 text/html RDN met w/ pt to complete initial nutritional assessment for intake of bariatric surgery. 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
--- OUTSIDE RECORDS SUMMARY | 2024-07-03 16:54 | XMS_ITS | Continuity of Care Document ---
Author Organization [facility] Address [address] [place] [address] Care Team Providers Care Operations Supervisor Chemical Cleaning Name Role Phone [facility] er Assessment No assessment recorded. Plan of Treatment Reminders Order Date Submit Date Provider Last Modified By Organization Details Last Modified Time Details Appointments [facility] MDCon 2024 11:00A M ABBE MITTAL MD Not available Not available Not available SURGERY 60 2024 06:30A M ABBE MITTAL MD Not available Not available Not available Lab None recorded. Referral None recorded. Procedures None recorded. Surgeries None recorded. Imaging electroca rdiogram 2024 025 [facility], [address], [place], [address], 06/06/2024 10:41:01 Medication Orders None recorded. Patient TargetsNo targets recorded. Patient InstructionsNo instructions recorded. Reason for Referral None Reported. Results Created Date Observation Date Name Description Value Unit Range Abnormal Flag Note LastModifiedBy Organization Detail LastModifiedTime 05/27/1905/26/2024 XR, chest , 2 view No observ ation record ed. [address], [place], [address], 05/27/2024 13:26:51 05/28/19 25 05/26/2024 elect vern lainezgr am, es ne ECG, 12 leads min No observ ation record ed. [address], [place], [address], 05/27/2024 13:26:52 06/05/1906/06/2024 elect rocar diogr am No observ ation record ed. [facility] [address], [place], [address], 06/06/2024 10:41:09 06/07/19 25 06/04/2024 elect rocar diogr am No observ ation record ed. [facility] [address], [place], [address], 06/06/2024 10:41:01 Result Notes None recorded. Problems Name Problem SNOMED Code Status Onset Date Resolution Date Notes Provider Name and Address Organization Details Recorded Time Anxiety 08375981 Active 2024 DEMETRA BANUELOS NP [address], [place], [address] , [place] [facility] & [place] 08:32:15 Obstructive sleep apnea syndrome 52902242 Active 2024 DEMETRA BANUELOS, LUZ ELENA [address] [facility], [place], [address] , [place] - [facility] & [place] 5 11:04:33 Type 2 diabetes mellitus 94716976 Active 2024 DEMETRA BANUELOS NP [address] [facility], [place], [address] , [place] [facility] & [place] 13:34:05 Body mass index 30+ - obesity 991694399 Active 2024 Osman Elam MD [address] [facility], [place], [address] , [facility] - [facility] & [place] 15:08:24 Problem Notes None recorded. Procedures Surgical History Date Name Laterality Status Provider Name and Address Organization Details Recorded Time extraction of wisdom tooth completed Susan Mireles [place] [facility] & [place] 5 15:27:37 ligation of fallopian tube completed Guillaume CROCKETT [facility] & [place] 5 09:51:03 excision of bunion completed Guillaume CROCKETT [facility] & [place] 5 09:51:14 destructive procedure completed Shlomo THORNTON [facility] & [place] 5 09:52:12 ESOPHAGOGASTRODUODEN OSCOPY (SURG) completed Heena CROCKETT [facility] & [place] 5 16:12:56 Imaging Results None recorded. Procedure Notes None recorded. Medical Equipment None Reported. Allergies Allergen ID Allergen Name Allergen Category Reaction Reaction Severity Criticality Documentation Date Start Date Code Code System Note Provider Name and Address Organization Details Recorded Time 994657 Non-stero idal anti-infl ammatory agent (product) medicatio n Not available Not available Not available 05/15/2024 92349 005 SNOMED Guillaume lora, [place] CROCKETT [facility] & [place] 5 09:50:33 Medications Name Sig Start Date [...] No t Available Vitals Date Recorded Body height Body mass index (BMI) Body weight Oxygen saturation Oxygen saturation in Arterial blood by Pulse oximetry Heart rate Systolic blood pressure Diastolic blood pressure Provider Name and Address Organization Details Last Updated DateTime 165.1 cm 36.3 kg/m2 14124.1 4 g 98 % 98 % 91 /min 134 mm[Hg] 86 mm[Hg] Brook Lomeli [facility] & [place] 14:58:12 Social History Question Answer Notes LastModified by [employer] Details LastModified Time Tobacco Smoking Status Never Smoker Guillaume lora, [facility] & [place] 05/15/2024 09:50:40 What Is Your Level Of Caffeine Consumption? Moderate [email or web address] Information not available 06/04/2024 Sex: Unknown Functional Status Question Answer Note LastModified by [employer] Details LastModified Time Do you use any illicit or recreational drugs? No [email or web address] Information not available 06/04/2024 What is your level of alcohol consumption? None [email or web address] Information not available 06/04/2024 What is your [...] SNOMED-CT Code Diagnosis ICD10 Code Diagnosis Note [id number] DEMETRA BANUELOS NP [facility]ariat[facility] s and Adv S[facility] [address] [place] [address] [address] [place] [address] 05/15/2024 08:07:57 05/15/2024 10:26:45 Obesity 531702492 E66.9 The patient will be scheduled for [...] testing has been completed Pre-surger y evaluation 185708798 Z01.818 Obesity screening 723003 005 Z13.89 Gastroesop hageal reflux disease 074133537 K21.9 Obstructiv e sleep apnea syndrome 05249606 G47.[id number] [facility] Adv [facility] [address] [facility] [address] [place] [address] 05/15/2024 10:22:30 05/15/2024 11:41:08 Diet education 96907574 Z71.3 Completed nutrition evaluation and education with [...] to patient based on recommende d surgery. [id number] Osman Elam MD [facility] [address] [facility] [address] [place] [address] 06/04/2024 14:50:31 06/04/2024 15:11:07 Preprocedural examination done 4236217604 92223 Z01.818 Good functional capacity with no prior cardiac history. Patient is low risk for cardiovasc ular complicati ons. No further cardiac testing warranted at this point. Obstructiv e sleep apnea syndrome 54850136 G47.33 uses CPAP regularly Body mass index 30+ - obesity 288607232 E66.9 Low-carboh ydrate and low-fat diet Increase [...] Walker Member ID Guarantor Name 06/04/2024 1 [place] [employer] [place] [id number] Stefani Camilo [id number] Stefani Camilo Notes Date Note Type Note Provider Name and Address Organization Details Recorded Time 06/04/2024 text/html Patient is here for preoperative risk [...] normal axis normal intervals Osman Elam MD [address], [place], [address], [facility] - [place] - [place] & [place] 06/04/2024 15:22:09 OBGyn Episode No OBEpisode recorded.
--- NOTE | 2024-07-03 17:00 | MM_ITS ---
PROCEDURE INFORMATION: Exam: MG Bilateral Screening 3D Mammography Exam date and time: 07/03/2024 4:58 PM Age: 48 years old Clinical indication: Screening exam. TECHNIQUE: Imaging protocol: Bilateral Screening tomosynthesis and 2D mammography including computer-aided detection (CAD) when performed. COMPARISON: 1. MG MM DIG SCREENING MAMM BI W/CAD 10/18/2022 4:32 PM 2. MG MAMMO SCREENING DIGITAL TOMOSYNTHESIS BILATERAL W CAD 02/12/2018 4:17 PM FINDINGS: MAMMOGRAPHY: Breast composition: There are scattered areas of fibroglandular density. Mass: No suspicious masses. Architectural distortion: None. Calcifications: No suspicious calcifications. Asymmetric density: None. Skin thickening: None. Axillary adenopathy: None. IMPRESSION: No mammographic evidence of malignancy. Annual screening is recommended unless otherwise clinically indicated. ASSESSMENT: BI-RADS Category 1: Negative.
== END 2024-07-03 23:59 | disposition home or self-care (01) ==
LOC: RAD 16:52
PROVIDERS: PCP Physician Assistant; Referring Provider Obstetrics & Gynecology; Visit Provider Obstetrics & Gynecology
DX: Z12.31 Encounter for screening mammogram for malignant neoplasm of breast (principal); R92.323 Mammographic fibroglandular density, bilateral breasts
CPT/HCPCS: 77063; 77067

== ENCOUNTER 2024-08-26 09:26 | Outpatient (CLI) | payer BC, SELFPAY ==
--- OUTSIDE RECORDS SUMMARY | 2024-08-26 09:31 | XMS_ITS | Clinical Summary ---
Author Organization [facility] Address [address] [place] [address] Care Team Providers Care Field Training Agent Name Role Phone Provider, No Known Primary Care Provider Unavail able Allergies Active Allergy Reactions Criticality Noted Date Comments Aspirin Anaphylaxis,Hives,Itching High 07/03/2018 Nsaids Hives,Shortness Of Breath,Itching High 07/03/2018 Other Swelling 07/03/2018 Steri strips Medications Vit-Fe Fumarate-FA ( VITAMIN PO) Take 1 tablet by mouth Daily. Active HYDROcodone-acet aminophen (NORCO) 5-325 MG per tablet Take 1 tablet by mouth Every 6 (Six) Hours As Needed for Pain . 10 tablet 07/04/2018 11:52 AM EDT 07/04/2018 Active sertraline (ZOLOFT) 50 MG tablet TAKE 1 TABLET BY MOUTH ONCE DAILY 30 tablet 2 05/10/2020 Active Active Problems Problem Noted Date Diagnosed Date Elderly multigravida in second trimester 019 IUFD at less than 20 weeks of gestation 07/04/19 19 Family History Medical History Relation Name Comments Hypertension Father Melanoma Father Prostate cancer Father Uterine cancer Maternal Aunt Diabetes Maternal Grandmother Osteoporosis Maternal Grandmother Stroke Maternal Grandmother Diabetes Maternal Uncle Coronary artery disease Paternal Grandfather Hypertension Paternal Grandfather Pulmonary embolism Paternal Grandfather Osteoporosis Paternal Grandmother Breast cancer Neg Hx Ovarian cancer Neg Hx Relation Name Status Comments Father Maternal Aunt Maternal Grandmother Maternal Uncle Paternal Grandfather Paternal Grandmother Social History Tobacco Use Types Packs/Day Years Used Date Smoking Tobacco: Never Smokeless Tobacco: Never Alcohol Use Standard Drinks/Week Comments No 0 (1 standard drink = 0.6 oz pur e alcohol) AUDIT-C Answer Date Recorded Frequency of Alcohol Consumption Never 07/04/2018 Average Number of Drinks Not on file 019 Frequency of Binge Drinking Not on file 06/07 Abuse Screen Answer Date Recorded Unsafe at Home or Work/School Not on file Feels Threatened by Someone? Not on file 10/2022 Does Anyone Keep You from Co ntacting Others or Doint Things Outside the Home? Not on file 11/13/2022 Physical Sign of Abuse Present Not on file 1 Housing Stability Answer Date Recorded Current Living Arrangements Not on file 10/2022 Potentially Unsafe Housing Conditions Not on ten e 11/13/2022 Family and Community Support Answer Jaun e Recorded Help with Day-to-Day Activities Not on file 11/13/2022 Lonely or Isolated Not on file 11/13/2022 Employment Answer Date Recorded Do you want help finding or keeping work or a emanuel b? Not on file 11/13/2022 Disabilities Answer Date Recorded Concentrating, Remembering, or Making Decisions Difficulty Not on file 11/13/2022 Doing Errands Independently Difficulty Not on fi le 11/13/2022 Education Answer Date Recorded Help with school or training? Not on file Preferred Language Not on file 11/13/2022 Comments No Sex and Gender Information Value Date Recorded Sex Assigned at Not on file Legal Sex Female 11:21 AM EDT Gender Identity Not on file Sexual Orientation Not on file Last Filed Vital Signs Vital Sign Reading Time Taken Comments Blood Pressure 117/59 07/04/2018 11:38 AM EDT Pulse 76 07/04/2018 11:38 AM EDT Temperature 37 C (98.6 F) 07/04/2018 11:38 AM EDT Respiratory Rate 16 07/04/2018 11:38 AM EDT Oxygen Saturation - - Inhaled Oxygen Concentration - - Weight 90.7 kg (200 lb) 07/03/2018 2:31 PM EDT Height 167.6 cm (5' 6 ) 07/03/2018 2:31 PM EDT Body Mass Index 32.28 07/03/2018 2:31 PM EDT Plan of Treatment Health Maintenance Due Date Last Done Comments Annual Gynecologic Pelvic an d Breast Exam 1977 TDAP/TD VACCINES (1 - Tdap) 1996 ANNUAL PHYSICAL 11/24/2019 MAMMOGRAM 02/13/2020 02/12/2018, 02/18/2013 COLOGUARD 2022 COLON CANCER SCREENING 5 YEA R SIGMOIDOSCOPY 2022 COLONOSCOPY 2022 COLORECTAL CANCER SCREENING 2022 CT COLONOGRAPHY 2022 FECAL OCCULT BLOOD TEST 2022 FIT Testing (1 year) 2022 COVID-19 Vaccine ( - 2023-2 5 season) 2023 INFLUENZA VACCINE 11/05/2024 HEPATITIS C SCREENING Completed 04/17/2018 Pneumococcal Vaccine 0-49 Aged Out No longer eligible based on patient's age to complete this topic Procedures Procedure Name Priority Date/Time Associated Diagnosis Comments HEPATITIS C ANTIBODY Routine 04/17/2018 MAMMO SCREENING DIGITAL TOMOSYNTHESIS BILATERAL W CAD Routine 02/12/2018 4:25 PM EST Visit for screening mammogram from Last 3 Months or Most Recently Relevant to Health Maintenance Results * Hepatitis C Antibody (04/17/2018) External Hepatitis C Ab negative Blood Historical Provider LAB BLOOD ORDERABLES Lotus l Result * Mammo Screening Digital Tomosynthesis Bilateral With CAD (02/12/2018 4:25 PM EST) Anatomical Region Laterality Modality Breast N/A Mammography 02/14/2018 4:42 PM EST Impressions 02/14/2018 4:44 PM EST Negative screening mammogram. RECOMMENDATION: Continue annual screening mammography. BI-RADS CATEGORY 1, NEGATIVE. CAD was utilized. The standard false-negative rate of mammography is between 10% and 25%. Complex patterns or increased breast density will markedly elevate the false-negative rate of mammography. A letter, in lay terminology, with the results of this exam will be mailed to the patient. This report was finalized on 02/14/2018 4:[address] Julissa Patrick MD. Narrative 02/14/2018 4:44 PM EST BILATERAL SCREENING MAMMOGRAM WITH TOMOSYNTHESIS: HISTORY: The patient has no personal or significant family history of breast cancer and no new breast complaints at the time of screening mammography. TECHNIQUE: Bilateral CC and MLO low dose full field digital breast tomosynthesis imaging was performed with 2D and 3D acquisitions. COMPARISON: 02/18/2013 FINDINGS: There are scattered areas of fibroglandular density. The fibroglandular pattern is stable. There are no suspicious masses, worrisome calcifications, nonsurgical areas of architectural distortion, or other secondary signs of malignancy. Elaine Meyer MD IMG MAMMOGRAPHY ORDERABL ES Final Result from Last 3 Months or Most Recently Relevant to Health Maintenance Insurance Advance Directives * CPR (Attempt to Resuscitate) (Latest Code Status on File) Date Activated Date Inactivated Comments 07/04/2018 9:40 AM 07/04/2018 2:30 PM Question Answer Comments Code Status (Patient has no pulse and is not breathing): CPR (Attempt to Resuscitate) Medical Interventions (Patie nt has pulse or is breathing): Full * CPR (Attempt to Resuscitate) Date Activated Date Inactivated Comments 07/03/2018 2:27 PM 07/04/2018 9:40 AM Question Answer Comments Code Status (Patient has no pulse and is not breathing): CPR (Attempt to Resuscitate) Medical Interventions (Patie nt has pulse or is breathing): Full Care Teams Field Training Agent Relationship Specialty Start Date End Date Provider, [place] [address] PCP - General 01/24/18
--- OUTSIDE RECORDS SUMMARY | 2024-08-26 09:31 | XMS_ITS | Clinical Summary ---
Author Organization [facility] Address [address] [place] [phone] Phone Care Team Providers Care Rehabilitation Case Coordinator Name Role Phone Unavailable Primary Care Provider Unavailabl e Social History Tobacco Use Types Packs/Day Years Used Date Smoking Tobacco: Never Assessed Comments Unknown Sex and Gender Information Value Date Recorded Sex Assigned at Not on file Legal Sex Female 9:54 AM EDT Gender Identity Not on file Sexual Orientation Not on file Plan of Treatment Upcoming Encounters Date Type Department Care Team (Late st Contact Info) Description 09/05/2024 9:30 AM EDT Office Visit [facility] [address] [phone] Aury Lazar MD [address] [place] [id number] Health Maintenance Due Date Last Done Comments Annual Wellness Exam 1980 DTaP/TDaP/Td (1 - Tdap) 1996 Hepatitis B Vaccine (1 of 3 - 19+ 3-dose series) 1996 Cervical Cancer Screening 1998 Pap Smear 1998 HPV/Pap Cotest 12/03/2007 Breast Cancer Screening 2017 Cologuard 2022 Colon Cancer Screening 2022 Colonoscopy 2022 FIT 2022 Sigmoidoscopy 2022 Virtual Colonography 2022 COVID-19 Vaccine ( - 2023-2 5 season) 2023 Influenza Vaccine (#1) 2024 Meningococcal B Vaccine Aged Out No l onger eligible based on patient's age to complete this topic Pneumococcal Vaccine 0-49 Aged Out No longer eligible based on patient's age to complete this topic
[2024-08-26 10:04] LABS: Hematocrit 42.8 % (37.0-47.0); Hemoglobin 13.4 g/dL (12.2-16.2); Immature Granulocytes % 0.2 %; Mean Corpuscular HGB Conc 31.3 g/dL (31.8-35.4); Mean Corpuscular Hemoglobin 26.9 pg (27.0-31.2); Mean Corpuscular Volume 85.8 fl (81-99); Nucleated Red Blood Cells % 0 %; Platelet Count 354 K/mm3 (142-424); Red Blood Count 4.99 M/mm3 (4.20-5.40); Red Cell Distribution Width-SD 42.5 fL; White Blood Count 5.1 K/mm3 (4.8-10.8)
[2024-08-26 10:13] LABS: Alanine Aminotransferase 33 U/L (12-78); Albumin Level 4.0 g/dl (3.5-5.0); Albumin/Globulin Ratio 1.4 (1.1-1.8); Alkaline Phosphatase 91 U/L (38-126); Anion Gap 10.5 mEq/L (5-15); Aspartate Amino Transferase 33 U/L (14-36); Bilirubin,Total 0.7 mg/dl (0.2-1.3); Blood Urea Nitrogen 11 mg/dl (7-17); Calcium 9.6 mg/dl (8.4-10.2); Carbon Dioxide 26 mmol/L (22.0-30.0); Chloride 107 mmol/L (98-107); Creatinine,Serum 0.70 mg/dl (0.52-1.04); Estimated Glomerular Filt Rate 90 ml/min (>60); GFR (African American) 109 ML/MIN (>60); Globulin 2.9 g/dL (1.3-3.2); Glucose 103 mg/dl (74-100); Potassium 4.5 mmoL/L (3.5-5.1); Sodium 139 mmol/L (136-145); Total Protein,Serum 6.9 g/dl (6.3-8.2)
[2024-08-26 10:30] LABS: 25-OH Vitamin D, Total 43.5 ng/mL (30-100); Free T4 (Free Thyroxine) 1.22 ng/dl (0.78-2.19)
[2024-08-26 10:44] LABS: Thyroid Stimulating Hormone 1.79 uIU/mL (0.465-4.68)
[2024-08-26 11:13] LABS: Iron 70 ug/dL (37-170)
[2024-08-26 11:21] LABS: Folate 12.30 ng/mL
[2024-08-26 11:22] LABS: Total Iron Binding Capacity 301 ug/dL (265-497)
[2024-08-26 11:49] LABS: Ferritin 52.6 ng/ml (6.24-137)
[2024-08-27 08:13] LABS: Prealbumin 17 mg/dL (12-34)
== END 2024-08-26 23:59 | disposition home or self-care (01) ==
LOC: LAB 09:27
PROVIDERS: PCP Physician Assistant; Visit Provider Physician Assistant
DX: E55.9 Vitamin D deficiency, unspecified (principal); R03.0 Elevated blood-pressure reading, without diagnosis of hypertension; E11.9 Type 2 diabetes mellitus without complications; Z91.89 Other specified personal risk factors, not elsewhere classified
CPT/HCPCS: 36415; 80053; 82306; 82728; 82746; 83540; 83550; 83921; 84134; 84425; 84439; 84443; 84590; 85025

== ENCOUNTER 2024-11-04 07:16 | Outpatient (CLI) | payer BC, SELFPAY ==
--- OUTSIDE RECORDS SUMMARY | 2024-09-05 09:30 | XMS_ITS | Encounter Summary ---
Author Organization [facility] [place] [address] Care Team Providers Care Piping Designer Name Role Phone Unavailable Primary Care Provider Unavailabl e Reason for Visit * Reason Comments New Patient Incontinence Encounter Details Date Type Department Care Team (Latest Contact Info) Description 09/05/2024 9:30 AM EDT Office Visit [facility] [address] [address] Aury Lazar MD [address] [place] [address] [id number] Mixed incontinence (Primary Dx); Stress incontinence; Urge incontinence; Frequency of urination; Cystocele, midline; Rectocele Social History Tobacco Use Types Packs/Day Years Used Date Smoking Tobacco: Never Assessed Comments Unknown Sex and Gender Information Value Date Recorded Sex Assigned at Not on file Legal Sex Female 9:54 AM EDT Gender Identity Not on file Sexual Orientation Not on file documented as of this encounter Progress Notes * Aury Lazar MD - 09/05/2024 9:30 AM EDTSummary: incontinence Images from the original note were not included. New Patient Stefani Camilo 1975 HPI: Patient is a 48 y.o. old female ( x 1; C/S x 0) Who is referred by Dr Gretchen Cartagena for [id number] of incontinence as a consultation with Dr Lazar today. H/o BTL H/o ablation Obesity ANNE H/o demise, suicidal ideation 07/29/2024 Gastric Sleeve by Surgeon in [facility] UROGYN Health Screening: Post Menopausal bleeding: N/A Mammogram date: 2024 Colonoscopy date: N/A PAP date: 2024 Glaucoma? No Bladder control problem: Leakage: yes How lon years Prior treatments for incontinence: kegels > 1 year Bladder emptying problems: Yes: Difficulty urinating or emptying bladder: yes How lon years Dribbling: yes Difficulty starting stream: no Straining to empty: yes Urine flow: Normal Prolapse/vaginal support problems: Do you have the feeling of fullness or pressure, bulge or protrusion of any vaginal tissue? No Have you ever used a pessary ( a plastic support device) for this problem? No Bowel Problem(s): No Sexual History: Barriers to sexual activity: No. 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 Gynecology-specific Surgical History: Hysterectomy: no Oopherectomy: no Salpingectomy (Fallopian tubes removed): no Prolapse surgery: no Vaginal surgery: yes Mesh placed: no Past Medical History: has no past medical history on file. Past Surgical History: has no past surgical history on file. Allergies: is allergic to nsaids (non-steroidal anti-inflammatory drug) and adhesive. Current Medications: has a current medication list which includes the following prescription(s): cholecalciferol (vitamin d3), desvenlafaxine, multivit-min/ferrous fumarate, omeprazole, and valacyclovir. Social History: Family History: family history is not on file. Review of System: Review of Systems Constitutional: Negative. Negative for chills, diaphoresis, fatigue and fever. HENT: Negative. Negative for ear discharge, ear pain and nosebleeds. Eyes: Negative. Negative for photophobia, discharge and itching. Respiratory: Negative. Negative for apnea, chest tightness, shortness of breath and wheezing. Cardiovascular: Negative. Negative for chest pain and palpitations. Gastrointestinal: Negative. Negative for abdominal distention. Endocrine: Negative. Negative for cold intolerance and heat intolerance. Genitourinary: Negative for enuresis, flank pain, genital sores and menstrual problem. Musculoskeletal: Negative for neck pain. Allergic/Immunologic: Negative. Negative for environmental allergies, food allergies and immunocompromised state. Neurological: Negative. Negative for tremors, seizures, syncope, facial asymmetry, light-headednessand headaches. Hematological: Negative. Negative for adenopathy. Does not bruise/bleed easily. Psychiatric/Behavioral: Negative. Negative for agitation and behavioral problems. Physical Exam: There were no vitals filed for this visit. Physical Exam Vitals and nursing note reviewed. Constitutional: Appearance: She is well-developed. HENT: Head: Normocephalic and atraumatic. Eyes: Conjunctiva/sclera: Conjunctivae normal. Pupils: Pupils are equal, round, and reactive to light. Neck: Thyroid: No thyromegaly. Cardiovascular: Rate and Rhythm: Normal rate and regular rhythm. Heart sounds: Normal heart sounds. No gallop. Pulmonary: Effort: Pulmonary effort is normal. No respiratory distress. Breath sounds: Normal breath sounds. No wheezing or rales. Abdominal: General: Bowel sounds are normal. There is no distension. Palpations: Abdomen is soft. Tenderness: There is no abdominal tenderness. There is no guarding or rebound. Musculoskeletal: General: No tenderness. Normal range of motion. Cervical back: Normal range of motion and neck supple. Lymphadenopathy: Cervical: No cervical adenopathy. Skin: General: Skin is warm and dry. Neurological: Mental Status: She is alert and oriented to person, place, and time. Deep Tendon Reflexes: Reflexes are normal and symmetric. Psychiatric: Behavior: Behavior normal. Judgment: Judgment normal. After asking the patient's permission, I completed the patient's physical and pelvic exam, and any applicable ancillary tests (i.e. Urinary catheter) with the presence of a dairy tester named Tayla DAVILA. The patient voiced understanding and gave verbal consent. Pelvic Exam: Normal EFG Atrophy none Normal mons and clitoris Normal labia Normal urethra and meatus Normal perineum and anus No masses Prolapse Stage 2 Bleeding no Discharge no Pain no GH 3-4cm Good uterine support Enlarged uterus [place] Pelvic Strength 5/5 Office Fill Study: Catheter PVR = 10 mL UA neg STEAMBOAT INSPECTOR negative C&S pending Labs/Imaging: No results found for: NA , K , CL , CO2 , ANIONGAP , CALCIUM , GLU , BUN , CREATININE , ALBUMIN , PROT , LABBILI , AST , ALT , ALKPHOS , GFRAFRAM , GFRNONAFRAM No results found for this or any previous visit. No results found for this or any previous visit. HIGH COMPLEXITY LEVEL 4 BILLING STATEMENT: This consultation can be billed based on complexity of medical decision making. After discussing everything with the patient, I documented my exam findings, any applicable urine tests, and independent review of the outside imaging/labwork/careteam provider notes in order to interpret this female pat ient as having the following concerns: a chronic condition called leakage of urine which is a part of PELVIC FLOOR DISORDERS (PFDs). PFDs can include the consideration of - but is not limited to - pro lapse/hernia/incontinence/nocturia/hematuria/female sexual dysfunction. This patient has OSITO specifically with worsening exacerbation and is seeking surgical management as I am a double-board certified surgical aide but is considering all treatment options. Due to her age and medical comorbidities listed below, she is identified as having moderate risks in proceeding with specialty treatment as discussed today. Thus, I reviewed her prior labwork and imaging studies which contribute to my personal interpretations below. As a senior consultant, the complexity of her pre existing conditions and how they affect her pelvic floor disorders was discussed in detail including the potential for severeexacerbation or progression affecting her quality of life. After discussing everything with the patient, I interpreted this female patient as having the following concerns: ASSESSMENT: mixed incontinence, overactive bladder, stress incontinence, and urgency/ frequency PLAN: Medical comorbidities that increase the complexity of treating patient's pelvic floor disorder(s) include: renal stones, obesity, ANNE, prior BTL/ablation and in particular recent gastric SLEEVE July 2024. STAGE II VAGINAL POP - Discussed the diagnosis, pathophysiology, and management options including but not limited to: expectant or pelvic physical therapy, conservative or pessary, and surgery. Patient was offered all options including surgical rampart tissue vaginal repairs, use of mesh, robotic repair, or colpectomy. As patient is sexually active and has not had (scope, ablation only) prior pelvic surgery, she wishes to proceed with surgery. Literature was given and reviewed in detail. All questions were answered and patient's goals and expectations were met today. URINARY INCONTINENCE - Patient exhibits subjective and objective evidence today of voiding dysfunction. We discussed the pathophysiology of her disease process via anatomic drawings. She is informed of treatment options including but not limited to: expectant, conservative such as pelvic physical therapy, behavioral modifications (i.e. Weight loss, dietary changes, timed voiding and retraining, smoking cessation), and medications, or surgery. Patient bothered most by OSITO with jumping/coughing, and wishes to proceed with surgery after further testing. Literature given and reviewed. All questions were answered and patient's goals and expectations were met today. 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 - fully aware I would not advocate for a hysterectomy at this time given her h/o ablation and no further medical indication for hysterectomy; she really wants one and is worried that Dr Cartagena suggested a FELIPE approach; I explained that would likely be best for her and as there is no medical reasonto proceed with a hysterectomy, we can approach her vaginal prolapse and incontinence through minimally invasive vaginal surgery only RTC for UROS with SAP INTEGRATION ARCHITECT when ready to schedule surgery/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 URODYNAMICS - PROCEDURE INFORMATION AND INSTRUCTIONS Your physician has referred [facility] to [facility]. During this visit, you will not see the doctor. You will be greeted by the chief medical officer and NANCY who perform this procedure. Please read over this document so you are FULLY PREPARED for the visit. The chief medical officer will send all results to the doctor who will review the results with you at your next visit. What are Urodynamics? Urodynamics is the name given to a number of tests designed to show how your bladder functions. Themain test is called cystometry, which measures your bladder???s ability to store and pass urine. Why are Urodynamics performed? Urinary problems, especially incontinence, may affect women of any age. Problems such as these usually increase with age, , childbirth and the onset of menopause. Your symptoms may include: Loss of urine while coughing, sneezing, laughing or exercising Sudden and/or frequent urge to pass urine Getting up at night frequently to pass urine Difficulty in emptying your bladder Recurrent bladder infections Pelvic Organ Prolapse Results from urodynamic tests allow your doctor to demonstrate the reason why you have the symptomsyou have, and so offer you the best treatment for your problems. Is any preparation required? You will normally be asked to come with a full bladder, so if possible, please do not pass urine inthe 2-3 hours prior to your appointment. Follow all instructions given to you by the staff. The procedure does not require any dieting or fasting. No anesthetic is required. On the day of the test, wear separates (i.e. a skirt or trousers and shirt), as you will need to remove your lower clothing and or use a skirt-drape. How is the test performed? There are several slightly different ways that Urodynamics can be performed, but the principles arethe same for all. You will be asked to pass urine into a special toilet to measure how quickly your bladder is able to empty. You may have a bladder scan immediately after you have passed urine or the chief medical officer may gently insert a small temporary catheter to assess how well your bladder has emptied. Following this, a smaller plastic tube/catheter will be inserted into your bladder so it can be filled with fluid. Another catheter will be gently inserted into the vagina or rectum. These catheters will record pressures measured in your bladder and abdomen. 2 small patches or sensors (with adhesive) will be applied to the skin near your rectum and 1 smallpatch applied near your knee. During the procedure you will be asked questions about the sensations in your bladder. You will also be asked to do some of the things which might trigger the problem you have (e.g. cough, strain, orstand/sit up). Let the chief medical officer doing the test know when your bladder feels full. It is very important to your physician if you can allow your bladder to be filled to capacity. Finally, you will be asked to empty your bladder again, with the catheters still in place. The catheters and sensors are then removed and the procedure is complete. Are there any risks? No matter how carefully the test is performed bladder infections can sometimes occur after it. You should drink more water than usual for a day or two to flush out any potential bacteria. The nurse may give you a medication to calm the anticipated bladder discomfort after your procedure. What to expect afterwards? Passing urine may sting/burn a little for a day after the test, but if you think that you have developed a urinary tract infection (UTI) please let your doctor know. The results of the test are usually available to your doctor within one week, and will be discussed with you at the next visit so that your treatment can be planned. Thank you. Urogynecology Team documented in this encounter Plan of Treatment Not on file documented as of this encounter Procedures Procedure Name Priority Date/Time Associated Diagnosis Comments URINALYSIS Routine 09/05/2024 9:57 AM EDT Frequency of urination URINE CULTURE (NO STAIN) Routine 09/05/2024 9:53 AM EDT Frequency of urination documented in this encounter Results * (ABNORMAL) URINALYSIS (09/05/2024 9:57 AM EDT) UA Color Yellow 09/05/2024 11:01 PM EDT [facility] UA Appear Clear Clear 09/05/2024 11:01 PM EDT [facility] UA Glucose Negative Negative mg/dL 09/05/2024 11:01 PM EDT [facility] UA Ketones Negative Negative mg/dL 09/05/2024 11:01 PM EDT [facility] UA Blood Trace (0.03 mg/dL)(A) Negative 09/05/2024 11:01 PM EDT [facility] UA pH 6.5 5.0 - 8.0 pH 09/05/2024 11:01 PM EDT [facility] UA Protein Negative Negative mg/dL 09/05/2024 11:01 PM EDT [facility] UA Urobilinogen 1+ (2-3 mg/dL)(A) <=1 mg/dL 09/05/2024 11:01 PM EDT [facility] UA Bili Negative Negative 09/05/2024 11:01 PM EDT [facility] UA Nitrite Negative Negative 09/05/2024 11:01 PM EDT [facility] UA Leuk Est 2+ (75 Lennox/mcl)(A) Negative 09/05/2024 11:01 PM EDT [facility] UA Spec Grav 1.028 1.001 - 1.035 no units 09/05/2024 11:01 PM EDT [facility] Comment:Reference range myra d for random specimens only. UA WBC 15(H) 0 - 4 /HPF 09/05/2024 11:01 PM EDT [facility] UA RBC <1 0 - 3 /HPF 09/05/2024 11:01 PM EDT [facility] UA Squam Epi 4+ /LPF 09/05/2024 11:01 PM EDT [facility] UA Mucus 1+ /LPF 09/05/2024 11:01 PM EDT [email or web address] UA Bacteria 1+(A) Negative /HPF 09/05/2024 11:01 PM EDT [email or web address] Urine URINARY BLADDER STRUCTURE / Unknown 09/05/2024 9:57 AM EDT 09/05/2024 9:57 AM EDT Aury Lazar MD URINE ORDERABLES Final Re sult [email or web address] [address] [facility] [facility] , [place] [place] [address] * (ABNORMAL) URINE CULTURE (NO STAIN) (09/05/2024 9:53 AM EDT) Culture Positive Growth(A) 09/08/2024 10:57 AM EDT [facility] Culture >100,000 CFU/mL Escherichia coli SUSCEPTIBI LITY RESULT 09/08/2024 10:57 AM EDT [facility] Urine URINARY BLADDER STRUCTURE / Unknown 09/05/2024 9:53 AM EDT 09/05/2024 9:53 AM EDT Narrative Organism Antibiotic Method Susceptibility Escherichia coli Amikacin SUSCEPTIBILITY RESULT Escherichia coli Amoxicillin/Clavulanate SUSCEPTIBILIT Y RESULT <=8/4 ug/mL: Susceptible Escherichia coli Ampicillin SUSCEPTIBILITY RESULT >16 ug/mL: Resistant Escherichia coli Ampicillin/Sulbactam SUSCEPTIBILITY R ESULT 16/8 ug/mL: Intermediate Escherichia coli Aztreonam SUSCEPTIBILITY RESULT <=4 ug/mL: Susceptible Escherichia coli Cefazolin SUSCEPTIBILITY RESULT <=2 ug/mL: Susceptible Escherichia coli Cefepime SUSCEPTIBILITY RESULT Escherichia coli Cefotaxime SUSCEPTIBILITY RESULT Escherichia coli Cefoxitin SUSCEPTIBILITY RESULT <=8 ug/mL: Susceptible Escherichia coli Ceftazidime SUSCEPTIBILITY RESULT Escherichia coli Ceftazidime/Avibactam SUSCEPTIBILITY RESULT Escherichia coli Ceftolozane/Tazobactam SUSCEPTIBILITY RESULT Escherichia coli Ceftriaxone SUSCEPTIBILITY RESULT Escherichia coli Cefuroxime SUSCEPTIBILITY RESULT Escherichia coli Ciprofloxacin SUSCEPTIBILITY RESULT <=0.25 ug/mL: Susceptible Escherichia coli Ertapenem SUSCEPTIBILITY RESULT <=0.5 ug/mL: Susceptible Escherichia coli Gentamicin SUSCEPTIBILITY RESULT <=2 ug/mL: Susceptible Escherichia coli Imipenem SUSCEPTIBILITY RESULT <=1 ug/mL: Susceptible Escherichia coli Levofloxacin SUSCEPTIBILITY RESULT <=0.5 ug/mL: Susceptible Escherichia coli Meropenem SUSCEPTIBILITY RESULT <=1 ug/mL: Susceptible Escherichia coli Meropenem/Vaborbactam SUSCEPTIBILITY RESULT Escherichia coli Minocycline SUSCEPTIBILITY RESULT Escherichia coli Moxifloxacin SUSCEPTIBILITY RESULT Escherichia coli Nitrofurantoin SUSCEPTIBILITY RESULT <=32 ug/mL: Susceptible Escherichia coli Piperacillin/Tazobactam SUSCEPTIBILIT Y RESULT <=8 ug/mL: Susceptible Escherichia coli Tetracycline SUSCEPTIBILITY RESULT <=4 ug/mL: Susceptible Escherichia coli Tigecycline SUSCEPTIBILITY RESULT Escherichia coli Tobramycin SUSCEPTIBILITY RESULT <=2 ug/mL: Susceptible Escherichia coli Trimethoprim/Sulfame tho xazole SUSCEPTIBILITY RESULT <=0.5/9.5 ug/mL: Susceptible us Aury Lazar MD MICROBIOLOGY - GENERAL OR DERABLES Final Result [facility], [address] , [place] [address] documented in this encounter Visit Diagnoses Diagnosis Mixed incontinence- Primary Mixed incontinence urge and stress (male)(female) Stress incontinence Female stress incontinence Urge incontinence Frequency of urination Urinary frequency Cystocele, midline Rectocele documented in this encounter Historical Medications * This list may reflect changes made after this encounter. omeprazole (PRILOSEC) 20 mg Oral Capsule, Delayed Release(E.C.) Take 20 mg by mouth daily. valACYclovir (VALTREX) 1 gram Oral Tablet Take 500 mg by mouth every 8 hours. 06/17/2024 desvenlafaxine 100 mg Oral Tablet Sustained Release 24 hr Take 1 Tablet by mouth daily. cholecalciferol, vitamin D3, 10 mcg (400 unit) Oral Capsule Take 800 Units by mouth daily. multivit-min/ferr ous fumarate (MULTI VITAMIN ORAL) Take 1 Tablet by mouth daily. added in this encounter Orders Lab Orders Without Results Count Last Ordered D ate First Ordered Date URINALYSIS 1 09/05/2024 documented in this encounter
--- OUTSIDE RECORDS SUMMARY | 2024-11-04 07:19 | XMS_ITS | Encounter Summary ---
Author Organization [facility] [place] [address] Care Team Providers Care Chief Telephone Operator Name Role Phone Unavailable Primary Care Provider Unavailabl e Encounter Details Date Type Department Care Team (Latest Contact Info) Description 09/08/2024 Results Follow-Up [facility] [address] [phone] Aury Lazar MD [address] [place] [id number] URINE CULTURE (NO STAIN), URINALYSIS Social History Tobacco Use Types Packs/Day Years Used Date Smoking Tobacco: Never Assessed Comments Unknown Sex and Gender Information Value Date Recorded Sex Assigned at Not on file Legal Sex Female 9:54 AM EDT Gender Identity Not on file Sexual Orientation Not on file documented as of this encounter Progress Notes * Wilma Damon RMA - 09/15/2024 2:34 PM EDT LVM. * Wilma Damon RMA - 09/08/2024 1:12 PM EDT Phone rang then stopped ringing. CANNOT send meds. Need to know patient's pharmacy. * Aury Lazar MD - 09/08/2024 1:05 PM EDT Dear Staff Patient has positive urine culture (UTI). Please call patient with these results [email or web address] and order Rx [email or web address] to her preferred pharmacy. She has been sent a NGI message from me as well. Thank you! Aury Lazar MD documented in this encounter Plan of Treatment Not on file documented as of this encounter Visit Diagnoses Diagnosis Acute UTI- Primary Urinary tract infection, site not specified documented in this encounter
--- OUTSIDE RECORDS SUMMARY | 2024-11-04 07:19 | XMS_ITS | Patient Health Record ---
[facility] Organization [facility] Address [address] [place] [id number] Care Team Providers Care Sewing Supervisor Name Role Phone Curt Biswas Primary Care Provider Pillo Kaura Unavailable [phone] Allergies Allergen (clinical drug ingredient) Drug/Non Drug Allergy documented on EMR Reaction Allergy Type Onset Date Status ibuprofen Advil Unknown Drug Allergy Active Aleve itching Drug Allergy Active aspirin Aspirin throat closes Drug Allergy Act neeraj ibuprofen Ibuprofen Unknown Drug Allergy Active ibuprofen Motrin IB throat closes Drug Allergy Act neeraj Medications Medication SIG (Take, Route, Frequency, Duration) Notes Start Date End Date Status Medrol DIRECTED P.O. *Please review and pick correct strength-formulati on from [employer] options. If intended option is not shown, discontinue and re-order from Quick Search* 04/21/2019 Not-Taking Amoxicillin 875 MG 1 tab(s) orally every 12 hours; Duration: 10 day(s) 04/21/2019 Not-Taking B-12 1000 MCG 1 tab(s) orally once a day 01/09/2012 Not-Taking Toprol XL 25 MG 1/2 tab orally once a day Not-Taking Vitamin D3 50 MCG (2000 UT) 2 cap orally once a day 01/09/2012 Not-Taking Lexapro 20 MG 1 tab(s) orally once a day; Duration: 30 day(s) Active Sulfamethoxazole-Tr imethoprim 800-160 MG 1 tab orally 2 times a day; Duration: 10 day(s) 04/29/2021 Active Immunizations Vaccine Route Administration Date Status Comme nts xFluzone (6mos and older)-trivalent IM Intramuscular 01/05/2012 Administered xFlu shot-36 months and older IM Intramuscular 10/31/2010 Administered Tetanus Tdap-Adacel (over 7yrs) IM Intramuscular 08/25/2015 Administered Problems Problem Type SNOMED Code ICD Code Onset Dates Problem Status W/U Status Risk Notes Problem Hypertension (33917127) HTN (hypertension) (I10) Active confirmed Problem Hyperlipidemia (58899669) Hyperlipidemia (E78.5) Active confirmed Problem Essential hypertension (78678451) Essential hypertension (I10) Active confirmed Problem Seasonal allergy (156541659) Seasonal allergies (J30.2) Active confirmed Problem History and physical examination, pre-employment (034375210) Physical exam, pre-employment (Z02.1) Active confirmed Problem Somnolence (67186936) Has daytime drowsiness (R40.0) Active confirmed Plan Of Treatment No Information Insurance Providers Payer Name Payer Address Payer Phone Subscriber Number Group Number Insured Name Patient Relationship to Insured Coverage Start Date Coverage End Date [employer] [address] [address] [place] [address] [id number] Stefani Camilo Self - patient is the insured Medical (General) History Medical History History ICD Code hypercholestrolemia Abrasion of conjunctiva, left, initial e ncounter Abrasion of conjunctiva, left, initial e ncounter Surgical History Surgery Date(Month/Year) foot surgey, R Hospitalization History Reason Date(Month/Year) child 1x 9-2009
--- OUTSIDE RECORDS SUMMARY | 2024-11-04 07:19 | XMS_ITS | Clinical Summary ---
Author Organization [facility] Address [address] [place] [address] Care Team Providers Care Cath Lab Radiological Technologist Name Role Phone Provider, No Known Primary [...] TEST 2022 FIT Testing (1 year) 2022 INFLUENZA VACCINE 09/05/2024 HEPATITIS C SCREENING Completed 04/17/2018 Pneumococcal Vaccine [...] (04/17/2018) External Hepatitis C Ab negative Blood [facility] Provider LAB BLOOD ORDERABLES Lotus l Result [...] Most Recently Relevant to Health Maintenance Insurance [employer] Advance Directives * CPR (Attempt to Resuscitate) [...] pulse or is breathing): Full Care Teams Cath Lab Radiological Technologist Relationship Specialty Start Date End Date Provider, No Known [facility] [address] PCP - General 01/24/18
--- OUTSIDE RECORDS SUMMARY | 2024-11-04 07:19 | XMS_ITS | Clinical Summary ---
Author Organization [facility] Address [address] [place] [address] Phone Care Team Providers Care Keg Inspector Name Role Phone Unavailable Primary Care Provider Unavailabl e Allergies Active Allergy Reactions Criticality Noted Date Comments Adhesive Rash 09/05/2024 Nsaids (Non-Steroidal Anti-I nflammatory Drug) Anaphylaxis High 09/05/2024 Medications multivit-min/naa paola fumarate (MULTI VITAMIN ORAL) Take 1 Tablet by mouth daily. Active cholecalciferol, vitamin D3, 10 mcg (400 unit) Oral Capsule Take 800 Units by mouth daily. Active desvenlafaxine 100 mg Oral Tablet Sustained Release 24 hr Take 1 Tablet by mouth daily. Active valACYclovir (VALTREX) 1 gram Oral Tablet Take 500 mg by mouth every 8 hours. 06/17/2024 Active omeprazole (PRILOSEC) 20 mg Oral Capsule, Delayed Release(E.C.) Take 20 mg by mouth daily. Active Encounters Date Type Department Care Team Description 09/08/2024 Results Follow-Up [facility] U[facility] [address] [phone] Aury Lazar MD URINE CULTURE (NO STAIN), URINALYSIS 09/05/2024 9:30 AM EDT Office Visit [facility] Urogynecology [address] [phone] Aury Lazar MD Mixed incontinence (Primary Dx); Stress incontinence; Urge incontinence; Frequency of urination; Cystocele, midline; Rectocele from Last 3 Months Social History Tobacco Use Types Packs/Day Years Used Date Smoking Tobacco: Never Assessed Comments Unknown Sex and Gender Information Value Date Recorded Sex Assigned at Not on file Legal Sex Female 9:54 AM EDT Gender Identity Not on file Sexual Orientation Not on file Plan of Treatment Health Maintenance Due Date Last Done Comments Annual Wellness Exam 1980 Hepatitis B Vaccine (1 of 3 - 19+ 3-dose series) 1996 Cervical Cancer Screening 1998 Pap Smear 1998 HPV/Pap Cotest 12/03/2007 Breast Cancer Screening 02/13/2020 02/12/19 19, 02/12/2018 Cologuard 2022 Colon Cancer Screening 2022 Colonoscopy 2022 FIT 2022 Sigmoidoscopy 2022 Virtual Colonography 2022 COVID-19 Vaccine (1 - 2023-2 5 season) 2024 Influenza Vaccine (#1) 2024 DTaP/TDaP/Td (2 - Td or Tdap) 08/14/2033 08/15/2023 Meningococcal B Vaccine Aged Out No l onger eligible based on patient's age to complete this topic Pneumococcal Vaccine 0-49 Aged Out No longer eligible based on patient's age to complete this topic Procedures Procedure Name Priority Date/Time Associated Diagnosis Comments URINALYSIS Routine 09/05/2024 9:57 AM EDT Frequency of urination URINE CULTURE (NO STAIN) Routine 09/05/2024 9:53 AM EDT Frequency of urination from Last 3 Months Results * (ABNORMAL) URINALYSIS (09/05/2024 9:57 AM EDT) UA Color Yellow 09/05/2024 11:01 PM EDT [facility] UA Appear Clear Clear 09/05/2024 11:01 PM EDT [facility] UA Glucose Negative Negative mg/dL 09/05/2024 11:01 PM EDT [facility] UA Ketones Negative Negative mg/dL 09/05/2024 11:01 PM EDT [facility] UA Blood Trace (0.03 mg/dL)(A) Negative 09/05/2024 11:01 PM EDT [facility] UA pH 6.5 5.0 - 8.0 pH 09/05/2024 11:01 PM EDT [facility] UA Protein Negative Negative mg/dL 09/05/2024 11:01 PM EDT [facility] UA Urobilinogen 1+ (2-3 mg/dL)(A) <=1 mg/dL 09/05/2024 11:01 PM EDT [facility] UA Bili Negative Negative 09/05/2024 11:01 PM EDT [facility] UA Nitrite Negative Negative 09/05/2024 11:01 PM EDT [facility] UA Leuk Est 2+ (75 Lennox/mcl)(A) Negative 09/05/2024 11:01 PM EDT [facility] UA Spec Grav 1.028 1.001 - 1.035 no units 09/05/2024 11:01 PM EDT [facility] Comment:Reference range myra d for random specimens only. UA WBC 15(H) 0 - 4 /HPF 09/05/2024 11:01 PM EDT [facility] UA RBC <1 0 - 3 /HPF 09/05/2024 11:01 PM EDT [facility] UA Squam Epi 4+ /LPF 09/05/2024 11:01 PM EDT [facility] UA Mucus 1+ /LPF 09/05/2024 11:01 PM EDT [facility] UA Bacteria 1+(A) Negative /HPF 09/05/2024 11:01 PM EDT [facility] Urine URINARY BLADDER STRUCTURE / Unknown 09/05/2024 9:57 AM EDT 09/05/2024 9:57 AM EDT us Aury Lazar MD URINE ORDERABLES Final Re sult [facility] [address] [facility] , [place] [address] * (ABNORMAL) URINE CULTURE (NO STAIN) (09/05/2024 9:53 AM EDT) Culture Positive Growth(A) 09/08/2024 10:57 AM EDT [facility] Culture >100,000 CFU/mL Escherichia coli SUSCEPTIBI LITY RESULT 09/08/2024 10:57 AM EDT [facility] Urine URINARY BLADDER STRUCTURE / Unknown 09/05/2024 [...] - GENERAL OR DERABLES Final Result [facility] [address] [facility] , [address] [place] [id number] from Last 3 Months Insurance [place] [id number] AN[place] P[place] [id number] ANTHEM PPO ANTHEM PPO
--- OUTSIDE RECORDS SUMMARY | 2024-11-04 07:19 | XMS_ITS | Data Portability ---
Author Organization [facility] [employer] [facility] Address [address] [place] [address] Care Team Providers Care Geography Department Chair Name Role Phone [facility] Primary Care Provider Assessment No assessment recorded. Plan of Treatment Reminders Order Date Submit Date Provider Last Modified By Organization Details Last Modified Time Details Appointments None recorded. Lab rapid flu (A+B) [address], [address], 4 08:21:23 rapid SARS CoV 2 Ag, QL, [place], upper respirator y specimen [address], [address], 4 08:21:23 rapid SARS CoV 2 Ag, QL, [place], upper respirator y specimen [address], [address], 4 16:10:59 rapid flu (A+B) [address], [address], 4 16:11:00 Referral None recorded. Procedures None recorded. Surgeries None recorded. Imaging None recorded. Medication Orders Valtrex 1 gram tablet 2024 025 [facility], [address], [address], 5 16:27:54 benzonatat e 200 mg capsule 2023 025 [facility], [address], [address], 5 16:03:18 Tessalon Perles 100 mg capsule [address] [facility], [address], [address], 4 08:15:29 Valtrex 1 gram tablet 2022 023 [facility], [address], [address], 4 08:10:56 Patient TargetsNo targets recorded. Patient Instructions Encounter Date Encounter Id Patient Instructions Last Modified By Organization Details Last Modified Time 04/27/2022 [id number] Take medication as prescribed. Increase fluids and rest. Use humidifier at bedside. Use Benadryl at night. If symptoms persist or worsen call the clinic. Not available 04/27/2022 11:42:03 Plan of care discussed with patient who voiced understanding. [email or web address] Not available 04/27/2022 11:41:17 01/11/2023 [id number] learning about healthy weight Not available 01/11/2023 14:38:37 take medication as directed Not available 01/11/2023 14:33:33 Plan of care discussed with patient who voiced understanding. Not available 01/11/2023 14:37:20 04/18/2023 [id number] eating healthy foods: care instructions Not available 04/18/2023 16:10:56 exercise [email or web address] Not available 04/17 16:10:57 01/22/2024 [id number] learning about healthy weight Not available 01/22/2024 08:21:23 Learning About Being Physically Active Not available 01/22/2024 08:21:23 When You Want to Lose Weight: Care Instructions Not available 01/22/2024 08:21:23 Rest, increase fluids, Tylenol for fever or pain. F/u if new or worsening symptoms occur. May return to regular activities when fever free for 24 hours without the use of fever reducing medications and symptoms are improving. Not available 01/22/2024 08:20:58 Plan of care discussed with patient/guardian who voiced understanding. Not available 01/22/2024 08:20:41 06/17/2024 [id number] depression after childbirth: care instructions [email or web address] Not available 06/17/2024 17:23:31 depression treatment: care instructions [email or web address] Not available 06/17/2024 17:23:31 learning about depression during Not available 06/17/2024 17:23:31 cold sores: care instructions [email or web address] Not available 06/17/2024 16:27:48 body mass index: care instructions [email or web address] Not available 06/17/2024 17:23:31 learning about healthy weight [email or web address] Not available 06/17/2024 17:23:31 Reason for Referral None Reported. Results Created Date Observation Date Name Description Value Unit Range Abnormal Flag Note LastModifiedBy Organization Detail LastModifiedTime 04/18/19 24 04/18/2023 rapid flu (A+B) Flu A negati ve Not Available [address], [address], 04/18/2023 15:44:37 04/18/19 24 04/18/2023 rapid flu (A+B) Flu B positi ve Not Available [address], [address], 04/18/2023 15:44:37 04/18/19 24 04/18/2023 rapid SARS CoV 2 Ag, QL, [place], upper respi rator y speci men SARS CoV Ag negati ve Not Available [address], [address], 04/18/2023 15:44:05 01/22/20 24 01/22/2024 rapid SARS CoV 2 Ag, QL, IA, upper respi rator y speci men SARS CoV Ag negati ve Not Available [address], [address], 01/22/2024 08:12:41 01/22/20 24 01/22/2024 rapid flu (A+B) Flu A positi ve Not Available [address], [address], 01/22/2024 08:12:18 01/22/20 24 01/22/2024 rapid flu (A+B) Flu B negati ve Not Available [address], [address], 01/22/2024 08:12:18 Result Notes None recorded. Problems Name Problem SNOMED Code Status Onset Date Resolution Date Notes Provider Name and Address Organization Details Recorded Time Acute sinusiti s 05011613 Completed 201811/10/2019 Problem Code: J01.90; Problem Code Type: ICD-10; Not Available [facility] 22:22:35 Eustachi an tube disorder 58124000 Completed 201911/10/2019 Problem Code: H69.93; Problem Code Type: ICD-10; Not Available [facility] 22:22:34 Acute sinusiti s 15355709 Active 2020 Problem Code: J01.90; Problem Code Type: ICD-10; Not Available [facility] 22:22:34 Common cold 08304000 Active 2021 Not Available [facility] 22:22:34 Acute pharyngi tis 927675378 Active 2021 Not Available [facility] 2 22:22:34 Herpes labialis 3467627 Active 2024 ROXIE Jesus [address] [place] [address], [address] [place] [address] , [employer] 5 16:27:34 Anxiety 43289256 Active 2024 ROXIE Jesus [address] [place] [address], [address] [place] [address] , [employer] 5 17:23:05 Moderate major depressi on, single episode 28278510 Active 2024 ROXIE Jesus [address] [place] [address], [address] [place] [address] , [employer] 5 17:23:19 Vitamin D deficien cy 69514865 Active 2024 ROXIE Jesus [address] [place] [address], [address] [place] [address] , [employer] 5 17:23:24 Increase d blood pressure 68199725 Active 2024 ROXIE Jesus [address] [place] [address], [address] [place] [address] , [employer] 5 17:23:39 Problem Notes None recorded. Procedures Surgical History Date Name Laterality Status Provider Name and Address Organization Details Recorded Time 12/06 Date of Last Pap Smear completed [employer] 5 16:05:13 12/06 Most Recent Mammogram completed [employer] 5 16:05:13 02/05 excision of bunion completed [employer] 5 16:06:21 Tubal Ligation completed [employer] 5 16:05:14 Endometrial Ablation completed [employer] 5 16:05:14 esophagogastroduodenoscopy completed [employer]. 16:06:54 Imaging Results None recorded. Procedure Notes None recorded. Medical Equipment None Reported. Allergies Allergen ID Allergen Name Allergen Category Reaction Reaction Severity Criticality Documentation Date Start Date Code Code System Note Provider Name and Address Organization Details Recorded Time 75867 Non-stero idal anti-infl ammatory agent (substanc e) medicatio n Not available Not available Not available 10/11/2021 58294 5008 SNOMED JUNO BELL [employer] 16:02:36 Medications Name Sig Start Date Stop Date Status Note LastModified by Organization Details LastModified Time benzonatate 200 mg capsule TAKE 1 CAPSULE BY MOUTH THREE TIMES DAILY NEEDED 06/17 completed Not Available Not Available Not Available clomiphene citrate 50 mg tablet take 1 tablet (50 mg) by oral route once daily 01/11 completed Not Available Not Available Not Available valacyclovi r 1 gram tablet TAKE 1 TABLET BY MOUTH EVERY 12 HOURS DIRECTED FOR 10 DAYS active Not Available Not Available No t Available hydrocodone 5 mg-acetamin ophen 325 mg tablet TAKE ONE TABLET BY MOUTH EVERY 6 HOURS NEEDED FOR PAIN MAY CAUSE DROWSINES S 01/21 completed Not Available Not Available Not Available phentermine 37.5 mg tablet TAKE 1 TABLET BY MOUTH ONCE DAILY MUST ADMINISTE R 30 MINUTES BEFORE OR 1-2 HOURS AFTER BREAKFAST 01/21 completed Not Available Not Available Not Available sulfamethox azole 800 mg-trimetho prim 160 mg tablet TAKE 1 TABLET BY MOUTH TWICE DAILY FOR 10 DAYS 04/27 completed Not Available Not Available Not Available amoxicillin 875 mg tablet take 1 tablet (875 mg) by oral route every 12 hours 04/04 completed Not Available Not Available Not Available lorazepam 0.5 mg tablet 06/17 completed Not Available Not Available Not Available tamsulosin 0.4 mg capsule TAKE 1 CAPSULE BY MOUTH ONCE DAILY 01/11 completed Not Available Not Available Not Available benzonatate 100 mg capsule Take 1 capsule 3 times a day by oral route as needed, for cough. 01/21 completed Not Available Not Available Not Available cyanocobala min (vit B-12) 1,000 mcg/mL injection solution 06/17 completed Not Available Not Available Not Available fluorometho lone 0.1 % eye drops,suspe nsion INSTILL 1 DROP INTO EACH EYE 4 TIMES DAILY FOR 7 DAYS THEN TWICE DAILY FOR 7 DAYS 04/27 completed Not Available Not Available Not Available methylpredn isolone 4 mg tablets in a dose pack 01/21 completed Not Available Not Available Not Available Zoloft 25 mg tablet take 1 tablet (25 mg) by oral route once daily 04/27 completed Not Available Not Available Not Available bromphenira mine-pseudo ephedrine-D M 2 mg-30 mg-10 mg/5 mL oral syrup take 10 millilite rs by oral route every 4 hours 04/04 completed Not Available Not Available Not Available fluticasone propionate 50 mcg/actuati on nasal spray,suspe nsion inhale 1 spray (50 mcg) in each nostril by intranasa l route 2 times per day 01/21 completed Not Available Not Available Not Available amoxicillin 875 mg-potassiu m clavulanate 125 mg tablet take 1 tablet by oral route every 12 hours 04/17 completed Not Available Not Available Not Available amoxicillin 500 mg-potassiu m clavulanate 125 mg tablet take 1 tablet by oral route every 12 hours 06/21 completed Not Available Not Available Not Available oxycodone 5 mg tablet TAKE 1 TABLET BY MOUTH EVERY 6 HOURS NEEDED 04/27 completed Not Available Not Available Not Available hydroxyzine pamoate 25 mg capsule TAKE 1 CAPSULE BY MOUTH THREE TIMES DAILY NEEDED FOR INCREASED ANXIETY 06/17 completed Not Available Not Available Not Available escitalopra m 20 mg tablet TAKE 1 TABLET BY MOUTH DAILY 01/11 completed Not Available Not Available Not Available nitrofurant oin monohydrate /macrocryst als 100 mg capsule TAKE 1 CAPSULE BY MOUTH EVERY 12 HOURS WITH FOOD FOR 10 DAYS 04/27 completed Not Available Not Available Not Available multivitami n Take once a day active Not Available Not Available No t Available desvenlafax ine succinate ER 50 mg tablet,exte nded release 24 hr TAKE 1 TABLET BY MOUTH ONCE DAILY 06/17 completed Not Available Not Available Not Available desvenlafax ine succinate ER 100 mg tablet,exte nded release 24 hr Take 1 tablet every day by oral route for 30 days. active Not Available Not Available No t Available Viibryd 10 mg (7)-20 mg (23) tablets in a dose pack TAKE PER PACKAGE INSTRUCTI ONS 04/27 completed Not Available Not Available Not Available vitamin D3 1,250 mcg (50,000 unit)-vitam in K2 200 mcg capsule Take 1 capsule every day by oral route. active Not Available Not Available No t Available Vitals Date Recorded Body height Body mass index (BMI) Body weight Body temperature Heart rate Oxygen saturation Oxygen saturation in Arterial blood by Pulse oximetry Systolic And Diastolic Provider Name and Address Organization Details Last Updated DateTime 4 167.64 cm 34.7 kg/m2 53059.3 6 g 99.4 [degF] 78 /min 99 % 99 % 124/78 mm[Hg] [employer] 4 15:43:19 Date Recorded Body height Body mass index (BMI) Body weight Body temperature Heart rate Oxygen saturation Oxygen saturation in Arterial blood by Pulse oximetry Systolic And Diastolic Provider Name and Address Organization Details Last Updated DateTime 3 167.64 cm 32.3 kg/m2 26940.4 7 g 98.4 [degF] 101 /min 100 % 100 % 122/82 mm[Hg] [employer] 3 10:21:13 Date Recorded Body height Body mass index (BMI) Body weight Heart rate Oxygen saturation Oxygen saturation in Arterial blood by Pulse oximetry Systolic And Diastolic Systolic And Diastolic Systolic And Diastolic Provider Name and Address Organization Details Last Updated DateTime 5 167.64 cm 36 kg/m2 551044. 1 g 102 /min 97 % 97 % 163/102 mm[Hg] 163/106 mm[Hg] 156/97 mm[Hg] JUNO BELL [employer] 5 16:25:10 Date Recorded Body height Body mass index (BMI) Body weight Body temperature Heart rate Oxygen saturation Oxygen saturation in Arterial blood by Pulse oximetry Systolic And Diastolic Provider Name and Address Organization Details Last Updated DateTime 3 167.64 cm 33.1 kg/m2 37091.4 4 g 97.4 [degF] 80 /min 100 % 100 % 122/78 mm[Hg] [employer] 3 14:18:54 Date Recorded Body height Body mass index (BMI) Body weight Body temperature Heart rate Oxygen saturation Oxygen saturation in Arterial blood by Pulse oximetry Systolic And Diastolic Provider Name and Address Organization Details Last Updated DateTime 4 167.64 cm 36.3 kg/m2 893912. 28 g 100 [degF] 120 /min 97 % 97 % 122/76 mm[Hg] [employer] 4 08:10:16 Social History Question Answer Notes LastModified by Organizat ion Details LastModified Time Tobacco Smoking Status Never Smoker JUNO lora [employer] 06/17/2024 16:05:56 Do You Have An Advance Directive? Yes [email or web address] Information not available 06/17/2024 Is Your Home Air Conditioned? Yes [email or web address] Information not available 06/17/2024 Do You Wear A Helmet When Biking? Yes [email or web address] Information not available 06/17/2024 Are You Blind Or Do You Have Difficulty Seeing? No [email or web address] Information not available 06/17/2024 What Is Your Level Of Caffeine Consumption? Moderate [email or web address] Information not available 06/17/2024 What Type Of Station Helper Do You Use? [employer] [email or web address] Information not available 06/17/2024 Are You Deaf Or Do You Have Serious Difficulty Hearing? No [email or web address] Information not available 06/17/2024 What Type Of Diet Are You Following? REGULAR [email or web address] Information not available 06/17/2024 What Is The Highest Grade Or Level Of School You Have Completed Or The Highest Degree You Have Received? 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 No [email or web address] Information not available 06/17/2024 Are There Any Guns Present In Your Home? Yes [email or web address] Information not available 06/17/2024 Which Of Your Hands Is Dominant? Right [email or web address] Information not available 06/17/2024 Do You Have A Medical Power Of Payroll And Benefits Manager? Yes [email or web address] Information not available 06/17/2024 What Was The Date Of Your Most Recent Tobacco Screening? 06/17/2024 [email or web address] Information not available 06/17/2024 Are There Any Occupational Health Risks Where You Work? No [email or web address] Information not available 06/17/2024 Do You Have Any Pets? Yes [email or web address] Information not available 06/17/2024 Do You Use Protection During Sex? No [email or web address] Information not available 06/17/2024 What Is Your Relationship Status? [email or web address] Information not available 06/17/2024 Have You Repeated Any Grades? No [email or web address] Information not available 06/17/2024 Do You Use Your Seat Belt Or Car Seat Routinely? Yes [email or web address] Information not available 06/17/2024 Are You Sexually Active? Yes [email or web address] Information not available 06/17/2024 Do You Have Any Siblings? No [email or web address] Information not available 06/17/2024 Do You Have Smoke And Carbon Monoxide Detectors In Your Home? Yes [email or web address] Information not available 06/17/2024 Are You Passively Exposed To Smoke? No Information not available 06/17/2024 Are There Any Smokers In Your House? No [email or web address] Information not available 06/17/2024 Do You Use Sunscreen Routinely? Yes [email or web address] Information not available 06/17/2024 Do You Have Difficulty Walking Or Climbing Stairs? No [email or web address] Information not available 06/17/2024 Sex: Unknown Functional Status Question Answer Note LastModified by Organizat ion Details LastModified Time Do you use any illicit or recreational drugs? No [email or web address] Information not available 06/17/2024 Do you or have you ever used any other forms of tobacco or nicotine? No [email or web address] Information not available 06/17/2024 What is your level of alcohol consumption? None [email or web address] Information not available 04/27/2022 Are you currently employed? Yes Information not available 06/17/2024 Are you able to walk independently without assistance or assistive devices? YESWOREST [email or web address] Information not available 06/17/2024 Do you have difficulty doing errands alone? No [email or web address] Information not available 06/17/2024 Are you able to care for yourself independently? Yes [email or web address] Information not available 06/17/2024 Do you have difficulty dressing, bathing, grooming, or toileting? No [email or web address] Information not available 06/17/2024 What is your exercise level? None [email or web address] Information not available 06/17/2024 Mental Status Question Answer Note LastModified by Organization D etails LastModified Time Do you have difficulty concentrating, remembering or making decisions? No [email or web address] Information no t available 06/17/2024 Are you or have you been involved with bullying? No [email or web address] Information not available 06/17/2024 Family History Relationship Description Onset Age of this Age Resolved Age Notes LastModified by Organization Details LastModified Time Unspecified Relation Family history of malignant neoplasm Relati ve: ''; [email or web address] Not available 06/17/2024 16:05:13 Paternal Grandmother Alzheimer's disease [email or web address] Not available 16:05:13 Father Hypercholest erolemia [email or web address] Not available 16:05:13 Father Hypertensive disorder [email or web address] Not available 16:05:13 Notes:*Procedure Description : Documented family medical history in father*Relative: Father Medical History Condition Response Anxiety Disorder Y Hospitalizations N Other Y Emergency room visit since last appointm ent. N Depression Y Gynecological History Statement/Question Response Abnormal Pap N Flow Moderate HPV Vaccine N Duration of Flow (days) 5 Current Control Method Ablation Age at Menarche 12 Most Recent Mammogram 12/06/2022 Age at First Child 34 Frequency of Cycle (Q days) 28 Menses Monthly Y Date of Last Pap Smear 12/06/2022 Obstetrics History GPAL:G 0 P 0 0 0 0 Immunizations Vaccine Type Date Status Note Provider Nam e and Address Organization Details Recorded Time Tdap 08/15/2023 completed Not Available [employer] 06/17/2024 15:45:27 Past Encounters Encounter ID Performer Location Encounter Start Date Encounter Closed Date Diagnosis/Indication Diagnosis SNOMED-CT Code Diagnosis ICD10 Code Diagnosis IMO Codes Diagnosis Note [id number] Sarah Moran APRN [address] [address] 04/27/2022 10:11:37 04/28/2022 08:21:24 Acute upper respiratory infection 61006006 J06.9 [id number] Sraah Moran APRN [address] [address] 01/11/2023 14:17:59 01/12/2023 10:31:15 Herpesviral vesicular dermatitis 002616014 B00.1 Body mass index 30+ - obesity 956713885 Z68.[id number] Ferrer PA-C [place] [address]2811[address] 2 04/18/2023 15:42:00 04/19/2023 09:15:22 Influenza caused by Influenza B virus 91347250 J10.1 Quarantine for 5-7 days. Rest, increase fluids, Tylenol alternatin g with Motrin for fever or pain, humidifier , and f/u if new or worsening symptoms. Tessalon Perrles for cough. F/u in 5-7 days if new or worsening symptoms occur. Obesity 994148723 E66.9 Tobacco non-user 1159737 001 30921 Z13.89 [id number] Lina Wallace APRN [address] [address] 01/22/2024 08:00:11 01/22/2024 13:19:24 Influenza caused by Influenza A virus 834914246 J09.X2 Obesity 089858868 E66.9 [id number] ROXIE Jesus [facility] [address] [place] [address] 06/17/2024 15:44:55 06/17/2024 16:27:24 Herpes labialis 8783881 B00.1 12598 Body mass index 30+ - obesity 260443990 Z68.36 849717 Anxiety 27334070 F41.9 16990 Moderate m ajor depression, single episode 61225344 F32.0 5960485065 Vitamin D deficiency 347 82396 E55.9 31627 Increased blood pressure 78225189 R03.0 195426 Will monitor following surgery - has not had elevated BP in the past Health Concerns Section Related Observation LastModified by Organization Detai ls LastModified Time None Recorded Concern Status LastModified by Organization Details LastModified Time None Recorded Advance Directives Directive Y: Payers Insurance Date Sequence Insurance Name Policy Number Policy Walker Covered Member ID Walker Member ID Guarantor Name 05/26/2024 1 MACHELLE Muller Camilo [id number] Stefani Muller Camilo 06/14/2024 1 [place] [id number] 1 Les Ton [id number] Stefani Muller Camilo Notes Date Note Type Note Provider Name and Address Organization Details Recorded Time 04/27/2022 text/html Upper Respirator y SymptomsReported by PatientUpper Respiratory SymptomsFor quality, patient reportscongested. For context, patient reportsallergies. For associated symptoms, patient reportsfatigue,headach e, andmalaise. For location, patient reportsheadandnasal. For severity, patient reportsmild. For duration, patient reportssymptoms lasting less than 2 weeks. For alleviating factors, patient reportsantihistamines. Pt states that on Sunday she felt so bad that she could not get up off the couch. She reports that she has had issues with elevated blood pressures and on Sunday her pulse was hanging out at 150. Discussed when to go to the ER to be seen.ROS as noted in the HPI Consent for treatment obtained Sarah Moran APRN [address], [place], [address], [facility] [employer] 04/27/2022 11:42:34 01/11/2023 text/html General Rash/Ski n LesionReported by PatientHPIFor quality, patient reportspainful. For location, patient reportsother: (bottom lip). For severity, patient reportsmild. For duration, patient reportshas noted for <1 week. For context, patient reportsno new detergents or skin productsandno one else with similar rash. For associated symptoms, patient reportsno fever,no cold symptoms,no nausea,no vomiting,no diarrhea,no urinary symptoms,no obesity,no asthma, andno depression.ROS as noted in the HPI consent for treatment obtained Lina CATHY Wallace [address] [place], [address], [employer] 01/11/2023 14:38:40 04/18/2023 text/html 47 yo white female presents with sinus congestion, cough and bodyaches with chills and diarrhea. Symptoms started 3 days ago. Two days ago tested at [facility] for COVID, flu and strep which all were negative. Symptoms have gotten progressively worse. Cough nonproductive. 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 Ave Ferrer PA-C [address] [place], [address], [employer] 04/20/2023 14:53:40 01/22/2024 text/html Upper Respirator y SymptomsReported by PatientUpper Respiratory SymptomsFor quality, patient reportsproductive coughandnasal discharge. For context, patient reportssick contact. For associated symptoms, patient reportsfatigue,headach e,chills, andmalaisebut reportsno shortness of breath,no vomiting, andno conjunctivitis. For location, patient reportshead,chest,nasa l, andface. For severity, patient reportsmildandmoderate . For onset/timing, patient reportsgradual.48 year old female presents with complaint of productive cough, runny nose, loss of appetite, and headache that started on Sunday.ROS as noted in the HPI Lina LopezCATHY jasso [address] [place], [address], [employer] 01/22/2024 08:22:06 06/17/2024 text/html ROS as noted in the HPI Patient presents to establish care.Needs surgical clearance for gastric sleeveHistory of Vitamin D deficiency, anxiety/depression.HgA 1c slightly elevated (6.7%) and blood pressure elevated today.Also starting to get a fever blister. ROXIE Jesus [address] [place], [address], [employer] 06/17/2024 17:25:26 OBGyn Episode No OBEpisode recorded.
[2024-11-04 07:38] LABS: Hematocrit 40.2 % (37.0-47.0); Hemoglobin 12.9 g/dL (12.2-16.2); Immature Granulocytes % 0.2 %; Mean Corpuscular HGB Conc 32.1 g/dL (31.8-35.4); Mean Corpuscular Hemoglobin 28.1 pg (27.0-31.2); Mean Corpuscular Volume 87.6 fl (81-99); Nucleated Red Blood Cells % 0 %; Platelet Count 399 K/mm3 (142-424); Red Blood Count 4.59 M/mm3 (4.20-5.40); Red Cell Distribution Width-SD 40.7 fL; White Blood Count 5.1 K/mm3 (4.8-10.8)
[2024-11-04 08:04] LABS: Alanine Aminotransferase 15 U/L (12-78); Albumin Level 3.7 g/dl (3.5-5.0); Albumin/Globulin Ratio 1.4 (1.1-1.8); Alkaline Phosphatase 85 U/L (38-126); Anion Gap 11.2 mEq/L (5-15); Aspartate Amino Transferase 17 U/L (14-36); Bilirubin,Total 0.5 mg/dl (0.2-1.3); Blood Urea Nitrogen 11 mg/dl (7-17); Calcium 9.2 mg/dl (8.4-10.2); Carbon Dioxide 25 mmol/L (22.0-30.0); Chloride 105 mmol/L (98-107); Cholesterol 209 mg/dl (140-200); Creatinine,Serum 0.70 mg/dl (0.52-1.04); Estimated Glomerular Filt Rate 90 ml/min (>60); GFR (African American) 109 ML/MIN (>60); Globulin 2.6 g/dL (1.3-3.2); Glucose 94 mg/dl (74-100); HDL Cholesterol 38 mg/dl (40-60); Potassium 4.2 mmoL/L (3.5-5.1); Sodium 137 mmol/L (136-145); Total Protein,Serum 6.3 g/dl (6.3-8.2); Triglycerides 132 mg/dl (30-150)
[2024-11-04 08:21] LABS: Free T4 (Free Thyroxine) 1.32 ng/dl (0.78-2.19)
[2024-11-04 08:43] LABS: 25-OH Vitamin D, Total 48.1 ng/mL (30-100)
[2024-11-04 09:11] LABS: Iron 99 ug/dL (37-170)
[2024-11-04 09:13] LABS: Folate 5.80 ng/mL
[2024-11-04 09:21] LABS: Total Iron Binding Capacity 283 ug/dL (265-497)
[2024-11-04 09:43] LABS: Thyroid Stimulating Hormone 1.31 uIU/mL (0.465-4.68)
[2024-11-04 09:47] LABS: Ferritin 49.7 ng/ml (6.24-137)
[2024-11-04 11:54] LABS: Hemoglobin A1C 5.7 % (4.0-6.0)
[2024-11-05 13:31] LABS: Prealbumin 16 mg/dL (12-34)
== END 2024-11-04 23:59 | disposition home or self-care (01) ==
LOC: LAB 07:17
PROVIDERS: PCP Physician Assistant; Visit Provider Physician Assistant
DX: K31.9 Disease of stomach and duodenum, unspecified (principal); R10.13 Epigastric pain; E11.9 Type 2 diabetes mellitus without complications; E55.9 Vitamin D deficiency, unspecified; E66.9 Obesity, unspecified; Z90.3 Acquired absence of stomach [part of]; Z91.89 Other specified personal risk factors, not elsewhere classified
CPT/HCPCS: 36415; 80053; 80061; 82306; 82728; 82746; 83036; 83540; 83550; 83921; 84134; 84425; 84439; 84443; 84446; 84590; 85025